=== PATIENT | male | born 1950 | race Two or more races ===

== ENCOUNTER 2020-09-14 07:34 | Outpatient (REF) | payer MEDICARE, SELFPAY ==
[2020-09-14 08:43] LABS: Alanine Aminotransferase 17 U/L (0-40); Albumin Level 4.3 g/dL (3.5-5.0); Alkaline Phosphatase 76 U/L (39-117); Anion Gap 12 (12-20); Aspartate Amino Transferase 24 U/L (5-37); Bilirubin Total 0.8 mg/dL (0.0-1.0); Blood Urea Nitrogen 13 mg/dL (9-16); Carbon Dioxide 27 mmol/L (22-29); Chloride 106 mmol/L (96-108); Cholesterol 213 mg/dL; Estimated Glomerular Filt Rate > 60; Glucose Fasting 97 mg/dL (60-99); HDL Cholesterol 50 mg/dL; LDL Cholesterol Calculated 136 mg/dl; Sodium 141 mmol/L (135-145); Total Protein 6.9 g/dL (6.5-8.0); Triglycerides 137 mg/dL
== END 2020-09-14 07:35 | disposition home or self-care (01) ==
LOC: HO.LAB 07:34
PROVIDERS: PCP Internal Medicine; Visit Provider Internal Medicine
DX: I10 Essential (primary) hypertension (principal); E78.00 Pure hypercholesterolemia, unspecified
CPT/HCPCS: 80053; 80061

== ENCOUNTER 2021-01-23 09:28 | Outpatient (REF) | payer MEDICARE, SELFPAY ==
--- NOTE | ~2021-01-23 | XR_ITS ---
EXAMINATION: XR HIP, RIGHT CLINICAL INFORMATION: Pain COMPARISON: None TECHNIQUE: Two views of the right hip. FINDINGS: Bone alignment is normal. No fracture or dislocation is seen. There is arthritis at the right hip joint with joint space narrowing and osteophyte formation. There are degenerative changes of the visualized lower lumbar spine. Soft tissues are unremarkable. XR/XR hip RT min 2V IMPRESSION: Right hip arthritis.
--- NOTE | ~2021-01-23 | XR_ITS ---
EXAMINATION: XR LUMBOSACRAL SPINE CLINICAL INFORMATION: Low back pain COMPARISON: None TECHNIQUE: Three views of the lumbosacral spine. FINDINGS: Bone alignment is normal. No fracture or dislocation is seen. There are disc cages at L4-L5 and L5-S1. There is severe multilevel degenerative disc disease and spondylosis seen at all levels. Paraspinal soft tissues are unremarkable. XR/XR lumbar spine 2-3V IMPRESSION: Postsurgical changes at L4-L5 and L5-S1. Severe multilevel degenerative disc disease and spondylosis.
== END 2021-01-23 09:29 | disposition home or self-care (01) ==
LOC: HO.XRAY 09:28
PROVIDERS: PCP Internal Medicine; Visit Provider Internal Medicine
DX: M25.551 Pain in right hip (principal); M54.5 Low back pain
CPT/HCPCS: 72100; 73502

== ENCOUNTER → 2021-04-04 15:01 | Outpatient (BNVA) | payer MEDICARE, SELFPAY | PROVIDERS: PCP Internal Medicine; Visit Provider Nurse Practitioner Family | DX: M47.816 Spondylosis without myelopathy or radiculopathy, lumbar region (principal); M53.3 Sacrococcygeal disorders, not elsewhere classified | CPT/HCPCS: 99202 ==

== ENCOUNTER 2021-04-26 05:58 | Outpatient (REF) | payer MEDICARE, SELFPAY ==
--- NOTE | ~2021-04-26 | FL_ITS ---
EXAMINATION: XR FLUOROSCOPY WITH IMAGES CLINICAL INFORMATION: Sacrococcygeal disorders. COMPARISON: None. TECHNIQUE: Fluoroscopy performed by Amelie Kessler NP. Fluoroscopy time: 0.3 minutes DAP: 1.47 Gycm2 Images: 4 FINDINGS: There are 4 images obtained revealing needle position along the inferior SI joint and contrast within the soft tissues. There are 2 cages at L4-L5 and L5-S1 disc levels for fusion. FL/FL guidance in treatment room IMPRESSION: Fluoroscopy provided to the referring physician for pain management of SI joints.
== END 2021-04-26 05:59 | disposition home or self-care (01) ==
LOC: HO.RADIR 05:58
PROVIDERS: Visit Provider Internal Medicine
DX: M53.3 Sacrococcygeal disorders, not elsewhere classified (principal)
CPT/HCPCS: 27096; J2920; J3300; Q9967

== ENCOUNTER 2021-05-11 07:26 | Outpatient (REF) | payer MEDICARE, SELFPAY ==
[2021-05-11 09:01] LABS: Alanine Aminotransferase 30 U/L (0-40); Albumin Level 4.3 g/dL (3.5-5.0); Alkaline Phosphatase 79 U/L (39-117); Anion Gap 13 (12-20); Aspartate Amino Transferase 29 U/L (5-37); Bilirubin Total 0.6 mg/dL (0.0-1.0); Blood Urea Nitrogen 17 mg/dL (9-16); Calcium 9.8 mg/dL (8.4-10.2); Carbon Dioxide 27 mmol/L (22-29); Chloride 107 mmol/L (96-108); Cholesterol 227 mg/dL; Estimated Glomerular Filt Rate > 60; Glucose Fasting 101 mg/dL (60-99); HDL Cholesterol 58 mg/dL; LDL Cholesterol Calculated 147 mg/dl; Potassium 4.6 mmol/L (3.3-5.1); Sodium 142 mmol/L (135-145); Total Protein 6.9 g/dL (6.5-8.0); Triglycerides 111 mg/dL
== END 2021-05-11 07:27 | disposition home or self-care (01) ==
LOC: HO.LAB 07:26
PROVIDERS: PCP Internal Medicine; Visit Provider Internal Medicine
DX: E78.5 Hyperlipidemia, unspecified (principal); E78.00 Pure hypercholesterolemia, unspecified
CPT/HCPCS: 36415; 80053; 80061

== ENCOUNTER → 2021-06-02 09:49 | Outpatient (BNVA) | payer MEDICARE, SELFPAY | PROVIDERS: PCP Internal Medicine; Visit Provider Internal Medicine | DX: M53.3 Sacrococcygeal disorders, not elsewhere classified (principal); M47.816 Spondylosis without myelopathy or radiculopathy, lumbar region; M25.551 Pain in right hip; G58.8 Other specified mononeuropathies | CPT/HCPCS: 99212 ==

== ENCOUNTER 2021-07-19 06:14 | Outpatient (REF) | payer MEDICARE, SELFPAY ==
--- NOTE | ~2021-07-19 | FL_ITS ---
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 TECHNIQUE: Fluoroscopy performed by Dr. Avalos. Fluoroscopy time: 0.6 minutes DAP: 2.18 Gycm2 Images: 4 FINDINGS: There are 3 needles along the upper right iliac wing and 2 needles overlying the periphery right lateral sacrum wing. Some trace contrast is noted in the soft tissues. No visible vascular communication. Again, there are degenerative changes lumbosacral spine with intradiscal cages L4-L5 and L5-S1. FL/FL guidance in treatment room IMPRESSION: Fluoroscopy for pain management procedure.
== END 2021-07-19 06:15 | disposition home or self-care (01) ==
LOC: HO.RADIR 06:14
PROVIDERS: Visit Provider Internal Medicine
DX: G58.8 Other specified mononeuropathies (principal); M54.50 Low back pain, unspecified; M25.551 Pain in right hip
CPT/HCPCS: 64450; Q9967

== ENCOUNTER → 2021-08-18 08:01 | Outpatient (BNVA) | payer MEDICARE, SELFPAY | PROVIDERS: PCP Internal Medicine; Visit Provider Nurse Practitioner Family | DX: G58.8 Other specified mononeuropathies (principal); M47.816 Spondylosis without myelopathy or radiculopathy, lumbar region; M53.3 Sacrococcygeal disorders, not elsewhere classified; M25.551 Pain in right hip | CPT/HCPCS: 99212 ==

== ENCOUNTER 2022-01-10 07:22 | Outpatient (REF) | payer MEDICARE, SELFPAY ==
--- NOTE | 2022-01-10 07:45 | ECG_ITS ---
Test Reason : I10 HTN Blood Pressure : / mmHG Vent. Rate : 057 BPM Atrial Rate : 057 BPM P-R Int : 170 ms QRS Dur : 104 ms QT Int : 422 ms P-R-T Axes : 063 060 042 degrees QTc Int : 410 ms Sinus bradycardia Otherwise normal ECG When compared with ECG of 09-SEP-2013 08:04, No significant change was found Referred By: Sangeetha Limon Electronically Signed By:MARTHA BE
[2022-01-10 08:58] LABS: Alanine Aminotransferase 22 U/L (0-40); Albumin Level 4.5 g/dL (3.5-5.0); Alkaline Phosphatase 75 U/L (39-117); Anion Gap 9 (12-20); Aspartate Amino Transferase 23 U/L (5-37); Bilirubin Total 0.8 mg/dL (0.0-1.0); Blood Urea Nitrogen 12 mg/dL (9-16); Calcium 10.1 mg/dL (8.4-10.2); Carbon Dioxide 31 mmol/L (22-29); Chloride 106 mmol/L (96-108); Cholesterol 234 mg/dL; Estimated Glomerular Filt Rate > 60; Glucose Fasting 114 mg/dL (60-99); HDL Cholesterol 65 mg/dL; LDL Cholesterol Calculated 136 mg/dl; Potassium 4.7 mmol/L (3.3-5.1); Sodium 141 mmol/L (135-145); Total Protein 7.3 g/dL (6.5-8.0); Triglycerides 167 mg/dL
[2022-01-20 12:41] LABS: Vitamin D 25-OH, D2 <4 ng/mL; Vitamin D 25-OH, D3 72 ng/mL; Vitamin D 25-OH, Total 72 ng/mL (30-100)
== END 2022-01-10 07:23 | disposition home or self-care (01) ==
LOC: HO.LAB 07:22
PROVIDERS: PCP Internal Medicine; Visit Provider Internal Medicine
DX: E78.5 Hyperlipidemia, unspecified (principal); I10 Essential (primary) hypertension; E55.9 Vitamin D deficiency, unspecified
CPT/HCPCS: 36415; 80053; 80061; 82306; 93005

== ENCOUNTER 2022-02-28 14:10 | Outpatient (REF) | payer MEDICARE, SELFPAY ==
--- NOTE | ~2022-02-28 | US_ITS ---
EXAMINATION: US LOWER EXTREMITY DUPLEX, BILATERAL CLINICAL INFORMATION: Peripheral vascular disease. History of hypertension. TECHNIQUE: Real-time ultrasound and Doppler techniques (integrating B-mode 2-D vascular images, Doppler spectral analysis and color flow Doppler imaging) were utilized to interrogate the lower extremities. COMPARISON: None FINDINGS: RIGHT LEG: Common femoral artery: 138 cm/s, triphasic Profunda femoris artery: 115 cm/s, triphasic Superficial femoral artery (proximal): 123 cm/s, triphasic Superficial femoral artery (mid): 140 cm/s, triphasic Superficial femoral artery (distal): 89.7 cm/s, triphasic Popliteal artery: 89.1 cm/s, triphasic Posterior tibial artery: 175 cm/s, triphasic LEFT LEG: Common femoral artery: 118 cm/s, triphasic Profunda femoris artery: 125 cm/s, triphasic Superficial femoral artery (proximal): 137 cm/s, triphasic Superficial femoral artery (mid): 122 cm/s, triphasic Superficial femoral artery (distal): 114 cm/s, triphasic Popliteal artery: 85.6 cm/s, triphasic Posterior tibial artery: 145 cm/s, triphasic US/US arterial duplex LE BI IMPRESSION: Right: Multiphasic waveforms demonstrated throughout the right lower extremity. There is focally increased velocity involving the right posterior tibial artery suggesting a proximal stenosis. The WIPING RAG WASHER waveform is triphasic. Left: Multiphasic waveforms demonstrated throughout the left lower extremity. No hemodynamically significant stenoses identified.
== END 2022-02-28 14:11 | disposition home or self-care (01) ==
LOC: HO.US 14:10
PROVIDERS: PCP Internal Medicine; Visit Provider Internal Medicine
DX: I73.9 Peripheral vascular disease, unspecified (principal)
CPT/HCPCS: 93925

== ENCOUNTER → 2022-04-26 10:05 | Outpatient (BNVA) | payer MEDICARE, SELFPAY | PROVIDERS: PCP Internal Medicine; Visit Provider Surgery Vascular Surgery | DX: I83.11 Varicose veins of right lower extremity with inflammation (principal) | CPT/HCPCS: 99212 ==

== ENCOUNTER 2022-06-27 12:31 | Outpatient (REF) | payer MEDICARE, SELFPAY ==
--- NOTE | ~2022-06-27 | US_ITS ---
EXAMINATION: US LOWER EXTREMITY VENOUS (REFLUX EXAM), BILATERAL CLINICAL INDICATION: Varicose veins, chronic venous insufficiency COMPARISON: 09/25/2017 TECHNIQUE: Color flow triplex imaging and compression Doppler was performed to evaluate both the deep and the superficial systems bilaterally. To evaluate the superficial system, the examination was performed in the upright position. Color-flow Doppler ultrasound and compression ultrasound were utilized. In addition, maneuvers were utilized to demonstrate reflux. FINDINGS: 1. DEEP VENOUS ULTRASOUND OF THE RIGHT LOWER EXTREMITY: Common Femoral Vein: Compressible, normal respiratory variation and augmented flow. Femoral Vein: Compressible, normal color flow and augmentation. Popliteal Vein: Compressible, normal augmentation. Deep Reflux: There is no evidence of reflux in the deep system in either the common femoral vein or the popliteal vein. Medial knee joint effusion 2. SUPERFICIAL ULTRASOUND WITH DOPPLER OF RIGHT LOWER EXTREMITY: GREAT SAPHENOUS VEIN: Saphenofemoral Junction: 0.4 cm; Reflux: 0 ms Proximal Thigh: 0.3 cm; Reflux: 0 ms Mid Thigh: 0.3 cm; Reflux: 0 ms Above Knee: 0.3 cm; Reflux: 0 ms At Knee: 0.2 cm; Reflux: 0 ms Below Knee: 0.2 cm; Reflux: 0 ms Mid Calf: 0.1 cm; Reflux: 0 ms Ankle: 0.1 cm; Reflux: 0 ms DUPLICATED MEDIAL GREAT SAPHENOUS VEIN: Diameter: None Imaged Reflux: NA DUPLICATED LATERAL GREAT SAPHENOUS VEIN: Diameter: None Imaged Reflux: NA SMALL SAPHENOUS VEIN: Proximal: 0.1 cm; Reflux: 0 ms Distal: 0.1 cm; Reflux: 0 ms VEIN OF GIACOMINI: None Imaged. PERFORATORS: Location: None Imaged Size: NA Reflux: NA VARICOSITIES: Location: None Imaged Size: NA Reflux: NA 3. DEEP VENOUS ULTRASOUND OF THE LEFT LOWER EXTREMITY: Common Femoral Vein: Compressible, normal respiratory variation and augmented flow. Femoral Vein: Compressible, normal color flow and augmentation. Popliteal Vein: Compressible, normal augmentation. Deep Reflux: There is no evidence of reflux in the deep system in either the common femoral vein or the popliteal vein. There is no evidence of a Andre's cyst. 4. SUPERFICIAL ULTRASOUND WITH DOPPLER OF LEFT LOWER EXTREMITY: GREAT SAPHENOUS VEIN: Saphenofemoral Junction: 0.5 cm; Reflux: 0 ms Proximal Thigh: 0.2 cm; Reflux: 0 ms Mid Thigh: 0.2 cm; Reflux: 0 ms Above Knee: 0.4 cm; Reflux: 0 ms At Knee: 0.2 cm; Reflux: 0 ms Below Knee: 0.3 cm; Reflux: 0 ms Mid Calf: 0.1 cm; Reflux: 0 ms Ankle: 0.2 cm; Reflux: 0 ms DUPLICATED MEDIAL GREAT SAPHENOUS VEIN: Diameter: None Imaged Reflux: NA DUPLICATED LATERAL GREAT SAPHENOUS VEIN: Diameter: 0.2 cm Reflux: None SMALL SAPHENOUS VEIN: Proximal: 0.1 cm; Reflux: 0 ms Distal: 0.1 cm; Reflux: 0 ms VEIN OF GIACOMINI: None Imaged. PERFORATORS: Location: None Imaged Size: NA Reflux: NA VARICOSITIES: Location: None Imaged Size: NA Reflux: NA US/US venous duplex LE BI IMPRESSION: Right: Normal venous ultrasound. No evidence of venous insufficiency. Note made of a medial knee joint effusion Left: Normal venous ultrasound. No evidence of venous insufficiency.
== END 2022-06-27 12:32 | disposition home or self-care (01) ==
LOC: HO.US 12:31
PROVIDERS: PCP Internal Medicine; Visit Provider Surgery Vascular Surgery
DX: I83.11 Varicose veins of right lower extremity with inflammation (principal)
CPT/HCPCS: 93970

== ENCOUNTER → 2022-07-03 08:48 | Outpatient (BNVA) | payer MEDICARE, SELFPAY | PROVIDERS: PCP Internal Medicine; Visit Provider Surgery Vascular Surgery | DX: I83.11 Varicose veins of right lower extremity with inflammation (principal); M79.605 Pain in left leg; M79.604 Pain in right leg; G25.81 Restless legs syndrome | CPT/HCPCS: 99212 ==

== ENCOUNTER 2022-08-08 07:56 | Outpatient (REF) | payer MEDICARE, SELFPAY ==
[2022-08-08 09:33] LABS: Alanine Aminotransferase 20 U/L (0-40); Albumin Level 4.5 g/dL (3.5-5.0); Alkaline Phosphatase 76 U/L (39-117); Anion Gap 14 (12-20); Aspartate Amino Transferase 21 U/L (5-37); Bilirubin Total 0.4 mg/dL (0.0-1.0); Blood Urea Nitrogen 16 mg/dL (9-16); Calcium 9.7 mg/dL (8.4-10.2); Carbon Dioxide 26 mmol/L (22-29); Chloride 107 mmol/L (96-108); Cholesterol 226 mg/dL; Estimated Glomerular Filt Rate > 60; Glucose Random 99 mg/dL (60-115); HDL Cholesterol 56 mg/dL; LDL Cholesterol Calculated 138 mg/dl; Potassium 4.4 mmol/L (3.3-5.1); Sodium 143 mmol/L (135-145); Total Protein 7.2 g/dL (6.5-8.0); Triglycerides 162 mg/dL
[2022-08-08 09:48] LABS: PSA,Total (Free>4and<10) 0.32 ng/mL (0.00-4.00)
== END 2022-08-08 07:57 | disposition home or self-care (01) ==
LOC: HO.LAB 07:56
PROVIDERS: PCP Internal Medicine; Visit Provider Internal Medicine
DX: Z00.00 Encounter for general adult medical examination without abnormal findings (principal); E78.5 Hyperlipidemia, unspecified; Z12.5 Encounter for screening for malignant neoplasm of prostate
CPT/HCPCS: 36415; 80053; 80061; 84153

== ENCOUNTER 2023-04-03 07:12 | Outpatient (REF) | payer MEDICARE, SELFPAY ==
[2023-04-03 07:58] LABS: Alanine Aminotransferase 23 U/L (0-40); Albumin Level 4.5 g/dL (3.5-5.0); Alkaline Phosphatase 72 U/L (39-117); Anion Gap 15 (12-20); Aspartate Amino Transferase 26 U/L (5-37); Blood Urea Nitrogen 17 mg/dL (9-16); Calcium 10.4 mg/dL (8.4-10.2); Carbon Dioxide 27 mmol/L (22-29); Chloride 105 mmol/L (96-108); Cholesterol 227 mg/dL; Estimated Glomerular Filt Rate > 60; Glucose Fasting 109 mg/dL (60-99); HDL Cholesterol 62 mg/dL; LDL Cholesterol Calculated 141 mg/dl; Potassium 4.5 mmol/L (3.3-5.1); Sodium 142 mmol/L (135-145); Total Protein 7.7 g/dL (6.5-8.0); Triglycerides 123 mg/dL
== END 2023-04-03 07:13 | disposition home or self-care (01) ==
LOC: HO.LAB 07:12
PROVIDERS: PCP Internal Medicine; Visit Provider Internal Medicine
DX: I10 Essential (primary) hypertension (principal); E78.5 Hyperlipidemia, unspecified
CPT/HCPCS: 36415; 80053; 80061

== ENCOUNTER 2023-04-10 11:41 | Outpatient (REF) | payer MEDICARE, SELFPAY ==
[2023-04-10 13:40] LABS: Alanine Aminotransferase 23 U/L (0-40); Albumin Level 4.3 g/dL (3.5-5.0); Alkaline Phosphatase 77 U/L (39-117); Anion Gap 8 (12-20); Aspartate Amino Transferase 27 U/L (5-37); Bilirubin Total 0.6 mg/dL (0.0-1.0); Blood Urea Nitrogen 13 mg/dL (9-16); Calcium 9.9 mg/dL (8.4-10.2); Carbon Dioxide 26 mmol/L (22-29); Chloride 107 mmol/L (96-108); Estimated Glomerular Filt Rate > 60; Glucose Fasting 93 mg/dL (60-99); Potassium 4.3 mmol/L (3.3-5.1); Sodium 137 mmol/L (135-145); Total Protein 7.4 g/dL (6.5-8.0)
[2023-04-10 13:55] LABS: Vitamin D 25-OH Total 57.4 ng/mL (>30)
[2023-04-11 15:28] LABS: Calcium (PTHI) 9.6 mg/dL (8.6-10.3); PTHI 37 pg/mL (16-77)
[2023-04-15 03:55] LABS: Calcium, Ionized 5.2 mg/dL (4.7-5.5)
== END 2023-04-10 11:42 | disposition home or self-care (01) ==
LOC: HO.LAB 11:41
PROVIDERS: PCP Internal Medicine; Visit Provider Internal Medicine
DX: I10 Essential (primary) hypertension (principal); E55.9 Vitamin D deficiency, unspecified
CPT/HCPCS: 36415; 80053; 82306; 82330; 83970

== ENCOUNTER 2023-04-11 | Outpatient (REF) | payer MEDICARE, SELFPAY ==
[2023-04-13 18:24] LABS: Calcium, Random Urine 13.4 mg/dL
== END 2023-04-11 00:01 | disposition home or self-care (01) ==
LOC: HO.LNP
PROVIDERS: Visit Provider Internal Medicine
DX: E83.52 Hypercalcemia (principal)
CPT/HCPCS: 82310

== ENCOUNTER 2023-08-14 12:43 | Outpatient (AMB) | payer MEDICARE, SELFPAY ==
[2023-08-14 12:57] VITALS: BP 160/78; PULSE 53; O2SAT 98; BMI 26.4
--- NOTE | 2023-08-14 12:57 | A.OFFPC_ITS ---
Vital Signs 08/14/23 12:57 Height 5 ft 10 in Weight 184 lb BMI 26.4 BP 160/78 H Blood Pressure Location Lt brachial Position Sitting Pulse 53 Pulse Source Pulse Oximeter Pulse Oximetry (%) 98 Oxygen Delivery Method Room Air Intake Visit Reasons: bp Intake Note: Patient here for a follow up BP Cdl Bulk Driver Required: No Accompanied by: Self / Same As Patient Allergies amlodipine Allergy (Intermediate, Verified 08/14/23 13:12) leg edema atorvastatin Allergy (Intermediate, Verified 08/14/23 13:12) myalgia rosuvastatin Allergy (Intermediate, Verified 08/14/23 13:12) myalgia Medication List - Last Reconciled 08/14/23 by Sangeetha Limon MD ezetimibe 10 mg PO DAILY 90 days lisinopril 10 mg PO DAILY 90 days Tobacco use date assessed: 01/01/23 Fall risk assessment: No Falls in past year Last assessed Fall Risk: 08/14/23 Dental Screening Dental Screen Date: 08/14/23 Did you have a dental visit in the last 12 months?: Yes Did you have a dental problem in the last 6 months where you did not have access to dental care?: No Was dental information given to patient?: Patient has dentist HPI HPI Comments History of Present Illness Details This is a 73-year-old male with hypertension and pure hypercholesterolemia that comes for follow-up on his conditions. Blood pressure elevated and he did took his medications today. I will increase lisinopril from 10 mg to 20 mg. Blood pressure goal is equal or less than 130/80. On Zetia for cholesterol. No chest pain or shortness of breath. [facility] Medical History Primary insomnia Left hip pain PAD (peripheral artery disease) Low back pain Right hip pain Pure hypercholesterolemia Essential hypertension Surgical History History of surgery History of appendectomy History of prostate surgery History of nasal surgery Family History Father Prostate cancer Mother Alzheimers disease Brother Hyperlipidemia Social History Housing: Apartment Alcohol intake: current Alcohol intake frequency: a few times a month Alcohol type: beer and hard liquor Patient Tobacco Use Status: Never used Tobacco e-Cigarette/Vaping Use: Never Used Second Hand Smoke Exposure: No service: No Current occupational status: disabled Cognitive needs: No Hearing needs: No Vision needs: No Questionnaire Thrive Questionnaire Date Thrive assessed: 01/01/23 DANISHA-7 AMB Questionnaire DANISHA-7 Date DANISHA - 7 assessed: 01/01/23 Source: Developed by Drs. Christian Hopson, Era Mccormack, Frank Hood and colleagues, with an educational linda from [employer]. Review of Systems Const All systems reviewed & are unremarkable except as noted in HPI and below Eyes Reports no additional complaints, Denies change in vision and Denies other visual disturbances Card Denies chest pain at rest, Denies chest pain with activity, Denies edema, Denies irregular heart rhythm, Denies claudication, Denies dyspnea, Denies dyspnea on exertion, Denies orthopnea, Denies paroxysmal nocturnal dyspnea and Denies slow heart rate Resp Denies cough, Denies dyspnea and Denies dyspnea on exertion GI Denies abdominal pain, Denies change in bowel habits, Denies excessive flatus, Denies nausea and Denies vomiting Denies urinary hesitancy, Denies urinary incontinence and Denies urinary urgency Musc Denies abnormal gait, Denies atrophy, Denies deformity and Denies limited range of motion Skin/Breast Denies bleeding lesions, Denies changing lesions and Denies rash Neuro Denies abnormal gait and Denies lack of coordination Physical exam (Primary Care) Vital Signs: Last Vital Signs Pulse 53 08/14/23 12:57 BP 160/78 H 08/14/23 12:57 Pulse Ox 98 08/14/23 12:57 Oxygen Delivery Method Room Air 08/14/23 12:57 BMI result Body Mass Index 26.4 Tobacco/Smoking Status: Tobacco use Status Tobacco use date assessed 01/01/23 08/14/23 12:59 Patient Tobacco Use Status Never used Tobacco 08/14/23 12:59 e-Cigarette/Vaping Use Never Used 08/14/23 12:59 Thrive Assessment: Date of Thrive Assessment Date Thrive assessed 01/01/23 08/14/23 12:59 Eyes General: appearance normal, both eyes and all related structures Eyelids: Yes eyelids normal Conjunctivae: conjunctivae normal Neck Neck: Yes normal visual inspection and Yes supple Resp Effort & Inspection: normal respiratory effort Auscultation: clear to auscultation bilaterally Cardio Jugular venous distension: no JVD Rate: regular rate Rhythm: regular rhythm Heart sounds: S1 normal heart sound present and S2 normal heart sound present Extrem General: Yes full ROM Office Procedures Flu Questionnaire Does the patient have a severe egg allergy?: No Does the patient have severe life threatening allergies?: No Does the patient have a fever or illness today?: No Has the patient ever had Guillain-Jasper Syndrome?: No Has the patient ever had any past reaction to a flu shot?: No Immunizations flu vacc [id number] 6mos up(PF) 60 mcg(15 mcgx4)/0.5 mL IM syringe Performing Provider: Sangeetha Limon MD Performing Location: [facility] Administered by: MOHIT Uribe on 08/14/23 13:22 Dose Route Admin Location Dispensed Lot Number Expiration Date [employer] 0.5 mL IM Left Deltoid 0.5 mL [id number] 04/12/24 76080-579-71 Projjix VIS Given Date VIS Provided VIS Publication Date 08/14/23 Single Vaccine 21 Eligibility Eligibility Date Funding Source Not [facility] Eligible 08/14/23 Private Assessment and Plan Assessment & Plan (1) Essential hypertension: Code(s): I10 - Essential (primary) hypertension Plan: Increase lisinopril from 10 mg to 20 mg. Blood pressure goal is equal or less than 130/80. Recheck blood pressure with nurse navigator in 3 weeks. (2) Pure hypercholesterolemia: Code(s): E78.00 - Pure hypercholesterolemia, unspecified Plan: Continue Zetia. Orders: Orders Influenza [id number] Immunization Today Z23 - Encounter for immunization Medications: New lisinopril 20 mg PO DAILY 90 tabs 1RF 90 days Discontinued lisinopril Discontinued Reason: Patient Completed Course 10 mg PO DAILY 90 days 90 tabs 0RF Coding Level of Care Code Est Pt Level 3 (47610) Diagnoses Essential hypertension I10 Pure hypercholesterolemia E78.00 Time Spent (min) 17
== END 2023-08-14 13:24 | disposition home or self-care (01) ==
PROVIDERS: PCP Internal Medicine; Visit Provider Internal Medicine
DX: I10 Essential (primary) hypertension (principal); E78.00 Pure hypercholesterolemia, unspecified; Z23 Encounter for immunization; I73.9 Peripheral vascular disease, unspecified
CPT/HCPCS: 90471; 90686; 99213

== ENCOUNTER 2023-12-17 10:16 | Outpatient (AMB) | payer MEDICARE, SELFPAY ==
[2023-12-17 10:19] VITALS: BP 152/84; BMI 25.7
--- NOTE | 2023-12-17 10:19 | MHC.PC.OV ---
Vital Signs 12/17/23 10:19 12/17/23 12:05 Height 5 ft 10 in Weight 179 lb BMI 25.7 BP 152/84 H 150/80 H Blood Pressure Location Lt brachial Lt brachial Position Sitting Sitting Intake Visit Reasons: bp Intake Note: Patient here for a follow up BP Kier Boiler Required: No Accompanied by: Self / Same As Patient Allergies amlodipine Allergy (Intermediate, Verified 12/17/23 10:41) leg edema atorvastatin Allergy (Intermediate, Verified 12/17/23 10:41) myalgia rosuvastatin Allergy (Intermediate, Verified 12/17/23 10:41) myalgia Medication List - Last Reconciled 12/17/23 by Sangeetha Limon MD ezetimibe 10 mg PO DAILY 90 days lisinopril 20 mg PO DAILY 90 days Tobacco use date assessed: 12/17/23 Fall risk assessment: No Falls in past year Last assessed Fall Risk: 12/17/23 Dental Screening Dental Screen Date: 12/17/23 Did you have a dental visit in the last 12 months?: Yes Did you have a dental problem in the last 6 months where you did not have access to dental care?: No Was dental information given to patient?: Patient has dentist HPI HPI Comments History of Present Illness Details This is a 73-year-old male with hypertension and pure hypercholesterolemia that comes today for follow-up on his conditions. Compliant with medications. Blood pressure is elevated today and will be recheck in 3 weeks by nurse navigator. On statins for cholesterol. No chest pain or shortness a breath. [facility] Medical History Primary insomnia Left hip pain PAD (peripheral artery disease) Low back pain Right hip pain Pure hypercholesterolemia Essential hypertension Surgical History History of surgery History of appendectomy History of prostate surgery History of nasal surgery Family History Father Prostate cancer Mother Alzheimers disease Brother Hyperlipidemia Social History Housing: Apartment Alcohol intake: current Alcohol intake frequency: a few times a month Alcohol type: beer and hard liquor Patient Tobacco Use Status: Never used Tobacco e-Cigarette/Vaping Use: Never Used Second Hand Smoke Exposure: No service: No Current occupational status: disabled Cognitive needs: No Hearing needs: No Vision needs: No Questionnaire PHQ-9 Over the last 2 weeks, how often have you been bothered by any of the following problems? 1. Little interest or pleasure in doing things: not at all 2. Feeling down, depressed, or hopeless: not at all 3. Trouble falling or staying asleep, or sleeping too much: not at all 4. Feeling tired or having little energy: not at all 5. Poor appetite or overeating: not at all 6. Feeling bad about yourself - or that you are a failure or have let yourself or your family down: not at all 7. Trouble concentrating on things, such as reading the newspaper or watching television: not at all 8. Moving or speaking so slowly that other people could have noticed. Or the opposite - being so fidgety or restless that you have been moving around a lot more than usual: not at all 9. Thoughts that you would be better off or of hurting yourself in some way: not at all Total score: 0 Depression Screening Interpretation: Negative Depression Screening Done: Yes 04758 - PHQ-9 Billing: Yes Source: Developed by Drs. Christian Hopson, Era Mccormack, Frank Hood and colleagues, with an educational linda from [employer]. Thrive Questionnaire Date Thrive assessed: 12/17/23 I am a: Patient What is your living situation today?: I have a steady place to live Within the past 12 months, did the food you bought not last and you didn't have the money to get more?: Never true Within the past 12 months, did you worry whether your food would run out before you got money to buy more?: Never true Do you have trouble paying for medicines?: No Do you have trouble getting transportation to medical appointments?: No Do you have trouble paying your heating and electricity bill?: No Do you have trouble taking care of your child, family member or friend?: No Do you have trouble with day-to-day activities such as bathing, preparing meals, shopping, managing finances, etc.?: No Are you currently unemployed and looking for a job?: No Are you interested in more education?: No Please select the resources that you would like help with: None Currently or been in a relationship where the following occur: no concerns reported THRIVE Score: 0 AUDIT C Alcohol Use Questionnaire (AUDIT-C) 1. How often do you have a drink containing alcohol?: Monthly or less 2. How many drinks containing alcohol do you have on a typical day when you are drinking?: 1 or 2 3. How often do you have six or more drinks on one occasion?: Never Total Score: 1 Score Reviewed/Action Taken: No DANISHA-7 AMB Questionnaire DANISHA-7 Date DANISHA - 7 assessed: 12/17/23 Feeling nervous, anxious, or on edge: 0 = Not at all Not being able to stop or control worryin = Not at all Worrying too much about different things: 0 = Not at all Trouble relaxin = Not at all Being so restless that it is hard to sit still: 0 = Not at all Becoming easily annoyed or irritable: 0 = Not at all Feeling afraid as if something awful might happen: 0 = Not at all Total DANISHA-7 score (0-4 normal; 5-9 mild; 10-14 moderate; 15-21 severe): 0 Source: Developed by Drs. Christian Hopson, Era Mccormack, Frank Hood and colleagues, with an educational linda from [employer]. DANISHA-7 Assessment Billing DANISHA-7 Assessment Tool: DANISHA-7 Assessment 13886 Review of Systems Const All systems reviewed & are unremarkable except as noted in HPI and below Eyes Reports no additional complaints, Denies change in vision and Denies other visual disturbances Card Denies chest pain at rest, Denies chest pain with activity, Denies edema, Denies irregular heart rhythm, Denies claudication, Denies dyspnea, Denies dyspnea on exertion, Denies orthopnea, Denies paroxysmal nocturnal dyspnea and Denies slow heart rate Resp Denies cough, Denies dyspnea and Denies dyspnea on exertion GI Denies abdominal pain, Denies change in bowel habits, Denies excessive flatus, Denies nausea and Denies vomiting Denies urinary hesitancy, Denies urinary incontinence and Denies urinary urgency Musc Denies abnormal gait, Denies atrophy, Denies deformity and Denies limited range of motion Skin/Breast Denies bleeding lesions, Denies changing lesions and Denies rash Neuro Denies abnormal gait and Denies lack of coordination Physical exam (Primary Care) Vital Signs: Last Vital Signs BP 152/84 H 12/17/23 10:19 BMI result Body Mass Index 25.7 Tobacco/Smoking Status: Tobacco use Status Tobacco use date assessed 12/17/23 12/17/23 10:25 Patient Tobacco Use Status Never used Tobacco 12/17/23 10:25 e-Cigarette/Vaping Use Never Used 12/17/23 10:25 PHQ-9: PHQ-9 Score PHQ-9: Total score 0 12/17/23 10:46 Depression Screening Interpretation: Negative Thrive Assessment: Date of Thrive Assessment Date Thrive assessed 12/17/23 12/17/23 10:25 Currently or been in a relationship where the following occur: no concerns reported Eyes General: appearance normal, both eyes and all related structures Eyelids: Yes eyelids normal Conjunctivae: conjunctivae normal Neck Neck: Yes normal visual inspection and Yes supple Resp Effort & Inspection: normal respiratory effort Auscultation: clear to auscultation bilaterally Cardio Jugular venous distension: no JVD Rate: regular rate Rhythm: regular rhythm Heart sounds: S1 normal heart sound present and S2 normal heart sound present Extrem General: Yes full ROM Assessment and Plan Assessment & Plan (1) Essential hypertension: Code(s): I10 - Essential (primary) hypertension Plan: Continue lisinopril. Blood pressure goal is equal or less than 130/80. Recheck blood pressure with nurse navigator in 3 weeks. (2) Pure hypercholesterolemia: Code(s): E78.00 - Pure hypercholesterolemia, unspecified Plan: Continue Zetia. Repeat lipid panel. Orders: Orders Lipid Panel Today E78.5 - Hyperlipidemia, unspecified Comprehensive [place]. Panel Fast Today E78.00 - Pure hypercholesterolemia, unspecified Referrals Gastroenterology Referral Z12.11 - Encounter for screening for malignant neoplasm of colon Coding Level of Care Code Est Pt Level 3 (70908) Diagnoses Essential hypertension I10 Pure hypercholesterolemia E78.00 Additional Codes DANISHA-7 Assessment Billing - DANISHA-7 Assessment Tool: DANISHA-7 Assessment 20086 ([id number]) Time Spent (min) 19
[2023-12-17 12:05] VITALS: BP 150/80
== END 2023-12-17 10:48 | disposition home or self-care (01) ==
PROVIDERS: PCP Internal Medicine; Visit Provider Internal Medicine
DX: I10 Essential (primary) hypertension (principal); E78.00 Pure hypercholesterolemia, unspecified
CPT/HCPCS: 99213

== ENCOUNTER → 2024-03-04 15:09 | Outpatient (BNVA) | payer MEDICARE, SELFPAY | PROVIDERS: PCP Internal Medicine; Visit Provider Nurse Practitioner Family ==

== ENCOUNTER 2024-04-14 08:36 | Outpatient (AMB) | payer MEDICARE, SELFPAY ==
[2024-04-14 08:39] VITALS: BP 124/56; PULSE 62; O2SAT 99; BMI 25.5
--- NOTE | 2024-04-14 08:39 | MHC.PC.OV ---
Vital Signs 04/14/24 08:39 Height 5 ft 10 in Weight 178 lb 0.4 oz BMI 25.5 BP 124/56 L Blood Pressure Location Lt brachial Position Sitting Pulse 62 Pulse Source Pulse Oximeter Pulse Oximetry (%) 99 Oxygen Delivery Method Room Air Intake Visit Reasons: pe Intake Note: Patient is here today for a physical. 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 Accompanied by: Self / Same As Patient Allergies amlodipine Allergy (Intermediate, Verified 04/14/24 09:02) leg edema atorvastatin Allergy (Intermediate, Verified 04/14/24 09:02) myalgia rosuvastatin Allergy (Intermediate, Verified 04/14/24 09:02) myalgia Medication List - Last Reconciled 04/14/24 by Sangeetha Limon MD bisacodyl (Dulcolax (bisacodyl)) 20 mg (4 x 5 mg) PO ONCE 1 day ezetimibe 10 mg PO DAILY 90 days lisinopril 20 mg PO DAILY 90 days polyethylene glycol 3350 (Miralax) 238 grams PO ONCE Tobacco use date assessed: 12/17/23 Fall risk assessment: No Falls in past year Last assessed Fall Risk: 04/14/24 Dental Screening Dental Screen Date: 12/17/23 Did you have a dental visit in the last 12 months?: Yes Did you have a dental problem in the last 6 months where you did not have access to dental care?: No Was dental information given to patient?: Patient has dentist HPI HPI Comments History of Present Illness Details This is a 74-year-old male that comes for his physical exam. Last colonoscopy was 2013 and was normal. Has a colonoscopy scheduled for July. No chest pain or shortness on breath. No acute complaints. FORMERLY [facility], LATER [facility] Medical History (Updated 04/14/24 @ 09:13 by Sangeetha Limon MD) Primary insomnia Left hip pain PAD (peripheral artery disease) Low back pain Right hip pain Pure hypercholesterolemia Essential hypertension Surgical History Hx of tooth extraction History of surgery History of appendectomy History of prostate surgery History of nasal surgery Family History Father Prostate cancer Mother Alzheimers disease Brother Hyperlipidemia Social History Housing: Apartment Alcohol intake: current Alcohol intake frequency: a few times a month Alcohol type: beer and hard liquor Patient Tobacco Use Status: Never used Tobacco e-Cigarette/Vaping Use: Never Used Second Hand Smoke Exposure: No service: No Current occupational status: disabled Cognitive needs: No Hearing needs: No Vision needs: No Questionnaire PHQ-9 Over the last 2 weeks, how often have you been bothered by any of the following problems? 1. Little interest or pleasure in doing things: not at all 2. Feeling down, depressed, or hopeless: not at all 3. Trouble falling or staying asleep, or sleeping too much: not at all 4. Feeling tired or having little energy: not at all 5. Poor appetite or overeating: not at all 6. Feeling bad about yourself - or that you are a failure or have let yourself or your family down: not at all 7. Trouble concentrating on things, such as reading the newspaper or watching television: not at all 8. Moving or speaking so slowly that other people could have noticed. Or the opposite - being so fidgety or restless that you have been moving around a lot more than usual: not at all 9. Thoughts that you would be better off or of hurting yourself in some way: not at all Total score: 0 Depression Screening Interpretation: Negative Depression Screening Done: Yes 56682 - PHQ-9 Billing: Yes Source: Developed by Drs. Christian Hopson, Era Mccormack, Frank Hood and colleagues, with an educational linda from [employer] Thrive Questionnaire Date Thrive assessed: 12/17/23 AUDIT C Alcohol Use Questionnaire (AUDIT-C) 1. How often do you have a drink containing alcohol?: Monthly or less 2. How many drinks containing alcohol do you have on a typical day when you are drinking?: 1 or 2 3. How often do you have six or more drinks on one occasion?: Never Total Score: 1 Score Reviewed/Action Taken: No DANISHA-7 AMB Questionnaire DANISHA-7 Date DANISHA - 7 assessed: 04/14/24 Feeling nervous, anxious, or on edge: 0 = Not at all Not being able to stop or control worryin = Not at all Worrying too much about different things: 0 = Not at all Trouble relaxin = Not at all Being so restless that it is hard to sit still: 0 = Not at all Becoming easily annoyed or irritable: 0 = Not at all Feeling afraid as if something awful might happen: 0 = Not at all Total DANISHA-7 score (0-4 normal; 5-9 mild; 10-14 moderate; 15-21 severe): 0 Source: Developed by Drs. Christian Hopson, Era Mccormack, Frank Hood and colleagues, with an educational linda from [employer] DANISHA-7 Assessment Billing DANISHA-7 Assessment Tool: DANISHA-7 Assessment 57447 Review of Systems Const All systems reviewed & are unremarkable except as noted in HPI and below Card Denies chest pain at rest, Denies chest pain with activity, Denies edema, Denies irregular heart rhythm, Denies claudication, Denies dyspnea, Denies dyspnea on exertion, Denies orthopnea, Denies paroxysmal nocturnal dyspnea and Denies slow heart rate Resp Denies cough, Denies dyspnea and Denies dyspnea on exertion GI Denies abdominal pain, Denies change in bowel habits, Denies excessive flatus, Denies nausea and Denies vomiting Denies urinary hesitancy, Denies urinary incontinence and Denies urinary urgency Musc Denies abnormal gait, Denies atrophy, Denies deformity and Denies limited range of motion Skin/Breast Denies bleeding lesions, Denies changing lesions and Denies rash Neuro Denies abnormal gait, Denies behavioral changes, Denies confusion and Denies lack of coordination Psych Denies behavioral changes and Denies confusion Physical exam (Primary Care) Vital Signs: Last Vital Signs Pulse 62 04/14/24 08:39 BP 124/56 L 04/14/24 08:39 Pulse Ox 99 04/14/24 08:39 Oxygen Delivery Method Room Air 04/14/24 08:39 BMI result Body Mass Index 25.5 Tobacco/Smoking Status: Tobacco use Status Tobacco use date assessed 12/17/23 04/14/24 08:40 Patient Tobacco Use Status Never used Tobacco 04/14/24 08:40 e-Cigarette/Vaping Use Never Used 04/14/24 08:40 PHQ-9: PHQ-9 Score PHQ-9: Total score 0 04/14/24 08:45 Depression Screening Interpretation: Negative Thrive Assessment: Date of Thrive Assessment Date Thrive assessed 12/17/23 04/14/24 08:40 Const General: No confusion Orientation/consciousness: patient oriented x3 and No confusion HENMT Head: Yes normal to inspection, Yes normocephalic and Yes atraumatic Ears: external ears normal Eyes General: appearance normal, both eyes and all related structures Eyelids: Yes eyelids normal Conjunctivae: conjunctivae normal Neck Neck: Yes normal visual inspection and Yes supple Resp Effort & Inspection: normal respiratory effort Auscultation: clear to auscultation bilaterally Cardio Jugular venous distension: no JVD Rate: regular rate Rhythm: regular rhythm Heart sounds: S1 normal heart sound present and S2 normal heart sound present GI Inspection: Yes normal to inspection Palpation (GI): Soft to palpation and nontender Auscultation: normal bowel sounds Skin General skin exam: no rashes or lesions noted Neuro General: patient oriented x3, no focal motor deficits and No confusion Extrem General: Yes full ROM Psych Appearance: grossly normal Assessment and Plan Assessment & Plan (1) Physical exam: Code(s): Z00.00 - Encounter for general adult medical examination without abnormal findings Plan: Repeat in a year. Coding Level of Care Code Est Pt Prev Care >65y(54359) Diagnoses Physical exam Z00.00 Additional Codes DANISHA-7 Assessment Billing - DANISHA-7 Assessment Tool: DANISHA-7 Assessment 82625 ([id number]) Time Spent (min) 30
== END 2024-04-14 09:12 | disposition home or self-care (01) ==
PROVIDERS: PCP Internal Medicine; Visit Provider Internal Medicine
DX: Z00.00 Encounter for general adult medical examination without abnormal findings (principal)
CPT/HCPCS: 99397

== ENCOUNTER 2024-05-06 07:37 | Outpatient (REF) | payer MEDICARE, SELFPAY ==
[2024-05-06 09:05] LABS: Alanine Aminotransferase 28 U/L (0-40); Albumin Level 4.2 g/dL (3.5-5.0); Alkaline Phosphatase 92 U/L (39-117); Anion Gap 12 (12-20); Aspartate Amino Transferase 26 U/L (5-37); Bilirubin Total 0.4 mg/dL (0.0-1.0); Blood Urea Nitrogen 13 mg/dL (9-16); Calcium 9.8 mg/dL (8.4-10.2); Carbon Dioxide 26 mmol/L (22-29); Chloride 109 mmol/L (96-108); Cholesterol 196 mg/dL (<200); Estimated Glomerular Filt Rate > 60; Glucose Fasting 101 mg/dL (60-99); HDL Cholesterol 61 mg/dL (>40); LDL Cholesterol Calculated 117 mg/dL (<100); Potassium 4.2 mmol/L (3.3-5.1); Sodium 143 mmol/L (135-145); Total Protein 7.3 g/dL (6.5-8.0); Triglycerides 92 mg/dL (<150); Uric Acid 5.4 mg/dL (3.4-7.0)
[2024-05-06 09:07] LABS: PSA,Total (Free>4and<10) 0.33 ng/mL (0.00-4.00)
== END 2024-05-06 07:38 | disposition home or self-care (01) ==
LOC: HO.LAB 07:37
PROVIDERS: PCP Internal Medicine; Visit Provider Internal Medicine
DX: E78.00 Pure hypercholesterolemia, unspecified (principal); M10.9 Gout, unspecified; E78.5 Hyperlipidemia, unspecified; Z12.5 Encounter for screening for malignant neoplasm of prostate
CPT/HCPCS: 36415; 80053; 80061; 84153; 84550

== ENCOUNTER 2024-07-09 10:45 | Outpatient (AMB) | payer MEDICARE, SELFPAY ==
--- NOTE | 2024-07-09 11:29 | MHC.OFFWIV ---
Intake Vital Signs 07/09/24 11:36 Height 5 ft 10 in Weight 174 lb BMI 25.0 BP 132/80 Blood Pressure Location Lt brachial Position Sitting Pulse 56 Pulse Source Pulse Oximeter Pulse Oximetry (%) 98 Oxygen Delivery Method Room Air Intake Visit Reasons: EP infection in between legs Intake Note: Patient here for rash in groin area, he states it is dark red, itchy and burning that has been present for a couple of days. 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 He states this is underneath his foreskin. Denies any difficulty voiding. Denies STI risk or inciting events to this. Has been applying an otc antibiotic ointment to the area. FORMERLY [facility], [facility] Medical History Primary insomnia Left hip pain PAD (peripheral artery disease) Low back pain Right hip pain Pure hypercholesterolemia Essential hypertension Surgical History Hx of tooth extraction History of surgery History of appendectomy History of prostate surgery History of nasal surgery Family History Father Prostate cancer Mother Alzheimers disease Brother Hyperlipidemia Social History Housing: Apartment Alcohol intake: current Alcohol intake frequency: a few times a month Alcohol type: beer and hard liquor Patient Tobacco Use Status: Never used Tobacco e-Cigarette/Vaping Use: Never Used Second Hand Smoke Exposure: No service: No Current occupational status: disabled Cognitive needs: No Hearing needs: No Vision needs: No Review of Systems Const All systems reviewed & are unremarkable except as noted in HPI and below Physical Exam Vital Signs: Last Vital Signs Pulse 56 07/09/24 11:36 BP 132/80 07/09/24 11:36 Pulse Ox 98 07/09/24 11:36 Oxygen Delivery Method Room Air 07/09/24 11:36 BMI result Body Mass Index 25.0 Const General: cooperative, healthy appearing and no acute distress Resp Effort & Inspection: normal respiratory effort General: Yes no CVA tenderness Penis: uncircumcised (foreskin easily retractable) and erythematous (glans of penis) Meatus: meatus normal Scrotum: scrotum normal Testes: Testes normal Back/Spine/Pelvis Back: no CVA tenderness Extrem General: Yes no clubbing, cyanosis or edema Psych Appearance: grossly normal Mental Status: mental status grossly normal Speech and movement: Normal speech and movement present Assessment & Plan Assessment & Plan (1) Balanitis: Code(s): N48.1 - Balanitis Plan: Started on Miconazole cream for balanitis. Reviewed use of saline rinses and genital hygiene. Advised to return to clinic next week if he does not improve with treatment. Patient verbalizes understanding and agrees to plan. Medications: New miconazole nitrate 2% (Antifungal (miconazole)) Label in Malaysian please. Apply cream to affected area twice a day for 2 weeks. 1 appl topical BID 14 days 28 grams 1RF N48.1 - Balanitis Coding Level of Care Code Est Pt Level 4 (55806) Diagnoses Balanitis N48.1
[2024-07-09 11:36] VITALS: BP 132/80; PULSE 56; O2SAT 98; BMI 25.0
== END 2024-07-09 12:00 | disposition home or self-care (01) ==
PROVIDERS: PCP Internal Medicine; Visit Provider Nurse Practitioner Family
DX: N48.1 Balanitis (principal)

== ENCOUNTER → 2024-07-09 10:45 | Outpatient (BNVA) | payer MEDICARE, SELFPAY | PROVIDERS: PCP Internal Medicine | DX: N48.1 Balanitis (principal) | CPT/HCPCS: 99212 ==

== ENCOUNTER 2024-07-28 09:12 | Day surgery (SDC) | payer MEDICARE, SELFPAY ==
--- NOTE | 2024-07-23 13:46 | P.CONAN_ITS ---
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 (Acute) Sacroiliac joint pain (Acute) Low back pain (Acute) Right hip pain (Acute) Pure hypercholesterolemia (Acute) Essential hypertension (Acute) Past Medical History Medical History Primary insomnia Left hip pain PAD (peripheral artery disease) Low back pain Right hip pain Pure hypercholesterolemia Essential hypertension Family History Family History Father Prostate cancer Mother Alzheimers disease Brother Hyperlipidemia Surgical History Surgical History Hx of tooth extraction History of surgery History of appendectomy History of prostate surgery History of nasal surgery Social History Social History Housing: Apartment Are you a primary furnace caretaker to a significant other at home: No Do you presently have visiting nurse or other home services: No Alcohol intake: current Alcohol intake frequency: a few times a month Alcohol type: beer and hard liquor Patient Tobacco Use Status: Never used Tobacco e-Cigarette/Vaping Use: Never Used Second Hand Smoke Exposure: No service: No Current occupational status: disabled Cognitive needs: No Hearing needs: No Vision needs: No Meds Allergies Allergy/AdvReac Type Severity Reaction Status Date / Time amlodipine Allergy Intermediate leg edema Verified 08/11/24 11:56 atorvastatin Allergy Intermediate myalgia Verified 08/11/24 11:56 rosuvastatin Allergy Intermediate myalgia Verified 08/11/24 11:56 Assessment and Plan Assessment Anesthesia Assessment: Chart Reviewed
[2024-07-28] MEDS: Lactated Ringers 1,000 ML 100 ML IVCONT (09:46)
[2024-07-28 10:00] VITALS: BP 149/69; PULSE 57; RESP 18; TEMP 36.8; O2SAT 97
[2024-07-28 10:01] VITALS: BMI 25.8
--- NOTE | 2024-07-28 10:31 | P.CONAN_ITS ---
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 (Acute) Sacroiliac joint pain (Acute) Low back pain (Acute) Right hip pain (Acute) Pure hypercholesterolemia (Acute) Essential hypertension (Acute) Past Medical History Medical History Primary insomnia Left hip pain PAD (peripheral artery disease) Low back pain Right hip pain Pure hypercholesterolemia Essential hypertension Functional capacity: independent ambulation Family History Family History Father Prostate cancer Mother Alzheimers disease Brother Hyperlipidemia Family history of problems with anesthesia: No Surgical History Surgical History Hx of tooth extraction History of surgery History of appendectomy History of prostate surgery History of nasal surgery History of Problems with Anesthesia: No Social History Social History Housing: Apartment Are you a primary respiratory care instructor to a significant other at home: No Do you presently have visiting nurse or other home services: No Alcohol intake: current Alcohol intake frequency: a few times a month Alcohol type: beer and hard liquor Patient Tobacco Use Status: Never used Tobacco e-Cigarette/Vaping Use: Never Used Second Hand Smoke Exposure: No Have you been hit, kicked, punched, or otherwise hurt by someone within the past year? If so, by whom?: No Are you DNR?: No Advance Directives: No Advance Directives Information Provided: Yes Recently lost weight without trying: No Nutrition Risks: No Nutritional Risk service: No Current occupational status: disabled Cognitive needs: No Hearing needs: No Vision needs: No Meds Allergies Allergy/AdvReac Type Severity Reaction Status Date / Time amlodipine Allergy Intermediate leg edema Verified 07/28/24 09:36 atorvastatin Allergy Intermediate myalgia Verified 07/28/24 09:36 rosuvastatin Allergy Intermediate myalgia Verified 07/28/24 09:36 Active Medications: Current Medications Lactated Ringer's (Lr) 1,000 mls @ 100 mls/hr IVCONT .Q10H MCKENNA Last Admin: 07/28/24 09:46 Dose: 100 mls/hr Exam Height,Weight and Vital Signs: Height 5 ft 10 in Weight 81.647 kg Last Vital Signs Temp 98.2 F 07/28/24 10:00 Pulse 57 07/28/24 10:00 Resp 18 07/28/24 10:00 BP 149/69 H 07/28/24 10:00 Pulse Ox 97 07/28/24 10:00 O2 Del Method Room Air 07/28/24 10:00 Airway Mallampati Class: II TM Dist: >3cm Neck ROM: Full Heart: RRR Lungs: CTA Assessment and Plan Assessment Anesthesia Assessment: Anesthesia Plan Discussed and Chart Reviewed Final Anesthetic Review Family History of Problems with Anesthesia: No History of Problems with Anesthesia: No ASA Class: II Final Preanesthetic Review: Meds/Allgs Chart Reviewed, Consent Obtained/Reviewed and Anes Risks/Benef Reviewed Patient Risk: Low Procedure Risk: Low Anesthetic Plan Anesthetic Plan: MAC: Disposition: Standard PACU
--- NOTE | 2024-07-28 10:41 | MHC.SHP ---
Pre-Procedural Eval Section A - 24 Hr Update-Section A only Date of Service: 07/28/24 Section B - Complete if H&P > 30 days Chief Complaint: screening Details of Present Illness: Primary insomnia Left hip pain PAD (peripheral artery disease) Low back pain Right hip pain Pure hypercholesterolemia Essential hypertension Surgical History (Updated 03/04/24 @ 15:23 by Mary Allen) Hx of tooth extraction History of surgery History of appendectomy History of prostate surgery History of nasal surgery Allergies: Allergies Allergy/AdvReac Type Severity Reaction Status Date / Time amlodipine Allergy Intermediate leg edema Verified 07/28/24 09:36 atorvastatin Allergy Intermediate myalgia Verified 07/28/24 09:36 rosuvastatin Allergy Intermediate myalgia Verified 07/28/24 09:36 Review of Systems Review of Systems Comment: Ten point ROS negative Exam Exam Comment: Gen appear: No acute distress HEENT: no icterus Chest: No overt resp distress Abd: soft, nontender, nondistended Psych: Stable affect, answering questions appropriately Neuro: A/Ox3 noted to move all extremities spontaneously Ext: no peripheral edema Plan Diagnosis/Plan: Unchanged I have reviewed the history and physical and performed a pertinent physical examination on my patient. No changes have occurred unless specified. Time Spent With Patient Time: Total time managing care of this patient today ____ minutes.
--- NOTE | 2024-07-28 10:42 | P.OPN-COLO_ITS ---
Colonoscopy Operative Note Operative Note Date of Service: 07/28/24 Narrative: Procedure: Colonoscopy Indication: Screening Endoscopist: Radha Dyson MD Anesthesia Provider: Dr Guerda Callejas Anesthesia type: MAC Instrument: Olympus [id number]-[id number] Consent: Indication, risks vs benefits, and alternatives were discussed with the patient who gave written informed consent to proceed. An insurance billing clerk was utilized to assist with the consent. Monitoring: EKG, pulse, pulse oximetry and blood pressure were monitored throughout the procedure. Please see anesthesia flowsheet. Procedure: The patient was brought to the procedure room and placed in the left lateral decubitus position. IV medications were administered by the anesthesia provider in attendance. A digital rectal exam was performed which was normal. A distal attachment cap was affixed to the tip of the colonoscope which was then inserted through the anus and advanced through the colon to the cecum at 75 cm,and terminal ileum. Appendiceal orifice and ileocecal valve were identified. Mucosa was carefully examined under high definition white light as the instrument was slowly withdrawn in a retrograde panoramic fashion. Retroflexion was performed in ascending colon and rectum. The procedure was not difficult. There were no immediate obvious complications. The quality of the prep was BBPS: 2+2+2 = adequate Withdrawal time 9 minutes. Limitations: No limitations. Findings: Mucosa: Normal to cecum and terminal ileum. Protruding lesions: * Large internal hemorrhoids without stigmata of recent bleeding. Impression: 1. Normal colon and terminal ileum mucosa 2. Internal hemorrhoids Recommendations: - Repeat colonoscopy in 10 years if patient in good health.
[2024-07-28 11:11] VITALS: BP 84/43; PULSE 59; RESP 16; TEMP 36.2; O2SAT 99
[2024-07-28 11:16] VITALS: BP 81/46; PULSE 57; RESP 16; O2SAT 98
[2024-07-28 11:21] VITALS: BP 92/50; PULSE 55; RESP 16; O2SAT 98
[2024-07-28 11:39] VITALS: BP 108/72; PULSE 54; RESP 17; TEMP 36.2; O2SAT 100
--- NOTE | 2024-07-28 13:24 | HO.POSTANES ---
Post Anesthesia Evaluation Post Anesthesia Evaluation Date of Service: 07/28/24 Vital Signs: Vital Signs Temp Pulse Resp BP Pulse Ox O2 Del Method 07/28/24 11:39 97.2 F 54 17 108/72 100 Room Air 07/28/24 11:21 55 16 92/50 L 98 Room Air 07/28/24 11:16 57 16 81/46 L 98 Room Air 07/28/24 11:11 97.2 F 59 16 84/43 L 99 Room Air 07/28/24 10:00 98.2 F 57 18 149/69 H 97 Room Air Anesthesia: Monitored Mental Status: Awake Pain Control: Satisfactory Nausea/Vomiting: None Hydration: Adequate Anesthesia-Related Issues: No Anes. Related Issues
== END 2024-07-28 12:08 | disposition home or self-care (01) ==
PROVIDERS: PCP Internal Medicine; Visit Provider Internal Medicine
PROC: 0DJD8ZZ Inspection of Lower Intestinal Tract, Via Natural or Artificial Opening Endoscopic (ICD-10-PCS; CPT 45378; principal; 2024-07-28 11:30)
DX: Z12.11 Encounter for screening for malignant neoplasm of colon (principal); K64.8 Other hemorrhoids; I10 Essential (primary) hypertension; I73.9 Peripheral vascular disease, unspecified; E78.00 Pure hypercholesterolemia, unspecified; F51.01 Primary insomnia; Z79.899 Other long term (current) drug therapy; Z88.8 Allergy status to other drugs, medicaments and biological substances; Z98.890 Other specified postprocedural states
CPT/HCPCS: G0121; J2003; J2704

== ENCOUNTER → 2024-07-28 09:12 | Outpatient (BNV) | payer MEDICARE, SELFPAY | PROVIDERS: PCP Internal Medicine; Visit Provider Internal Medicine | DX: Z12.11 Encounter for screening for malignant neoplasm of colon (principal); K64.8 Other hemorrhoids | CPT/HCPCS: G0121 ==

== ENCOUNTER 2024-08-11 11:51 | Outpatient (AMB) | payer MEDICARE, SELFPAY ==
--- NOTE | 2024-08-11 11:55 | MHC.OFFVIS ---
Vital Signs 08/11/24 11:56 Height 5 ft 10 in Weight 167 lb 8.821 oz BMI 24.0 BP 146/60 H Blood Pressure Location Rt brachial Position Sitting Pulse 62 Pulse Source Pulse Oximeter Pulse Oximetry (%) 100 Oxygen Delivery Method Room Air Intake Visit Reasons: s/p colon Intake Note: Relevant Flags or Indicators ? Requires Payroll Benefits Clerk? Y Lexx presents in office today for a scheduled s/p FUV. CC; ?No recent labs, diagnostics, or meds ordered recently. Relevant GI Sx as reported per pt? Pt does report occasional constipation, however; nothing new since the procedure. ? Hx of any recent surgeries? Colonoscopy w/ Dr. Dyson. Payroll Benefits Clerk Required: Yes Payroll Benefits Clerk Services: Payroll Benefits Clerk Present Payroll Benefits Clerk Name: [id number] Wheatley Information Interpreted: non-clinical & clinical Accompanied by: Self / Same As Patient Allergies amlodipine Allergy (Intermediate, Verified 08/11/24 11:56) leg edema atorvastatin Allergy (Intermediate, Verified 08/11/24 11:56) myalgia rosuvastatin Allergy (Intermediate, Verified 08/11/24 11:56) myalgia HPI HPI s/p colon: Details: LAST VISIT: Screen for colon cancer Plan Patient denies any GI, cardiac or respiratory symptoms.? Denies any issues with anesthesia in the past.? Denies any history of sleep apnea.? No history infectious diseases in the past or present.? Not on any anticoagulation therapy.? No family or personal history of colon cancer or polyps.? Patient denies melena, hematochezia, unintentional weight loss or ribbon like stools.? Discussed at length the pre-procedure,? prep, diet & medications as well as what to expect prior, during and after the procedure.?? Stressed the importance of good bowel prep.? Recommended the use of Vaseline or Calmoseptine OTC & baby wipes with bowel movements to promote comfort.? ?Patient verbalizes understanding and agrees to plan of care.? He was given the opportunity to ask questions and all questions answered.? We will see him after the procedure.? Medications New bisacodyl (Dulcolax (bisacodyl)) take 4 tabs at noon the day before your colonoscopy 20 mg (4 x 5 mg) PO ONCE 4 tabs 0RF 1 day Z12.11 polyethylene glycol 3350 (Miralax) As directed by gastroenterology department at [facility] 238 grams PO ONCE 238 grams 0RF Z12.11 COLONOSCOPY: Findings: Mucosa: Normal to cecum and terminal ileum. Protruding lesions: Large internal hemorrhoids without stigmata of recent bleeding. Impression: 1. Normal colon and terminal ileum mucosa 2. Internal hemorrhoids Recommendations: - Repeat colonoscopy in 10 years if patient in good health. TODAY'S VISIT: Patient is here today for follow-up and to discuss colonoscopy results. Patient denies any ill effects from the prep, anesthesia or procedure itself. Reports to be feeling well. However patient does report that he is not having bowel movements daily, sometimes he feels like he does not empty completely. Urge to go and no bowel movement. Patient denies melena, hematochezia, unintentional weight loss or ribbon like stools. Patient denies any dyspepsia, dysphagia or odynophagia. Patient reports to be feeling well denies any GI concerning symptoms. No polyps found, small internal hemorrhoids. [facility] Medical History (Updated 08/11/24 @ 12:33 by Lilibeth Ryan, [facility]) Internal hemorrhoids without complication Primary insomnia Left hip pain PAD (peripheral artery disease) Low back pain Right hip pain Pure hypercholesterolemia Essential hypertension Surgical History Hx of tooth extraction History of surgery History of appendectomy History of prostate surgery History of nasal surgery Family History Father Prostate cancer Mother Alzheimers disease Brother Hyperlipidemia Social History Housing: Apartment Are you a primary critical care unit nurse to a significant other at home: No Do you presently have visiting nurse or other home services: No Alcohol intake: current Alcohol intake frequency: a few times a month Alcohol type: beer and hard liquor Patient Tobacco Use Status: Never used Tobacco e-Cigarette/Vaping Use: Never Used Second Hand Smoke Exposure: No service: No Current occupational status: disabled Cognitive needs: No Hearing needs: No Vision needs: No Physical Exam Vital Signs: Last Vital Signs Pulse 62 08/11/24 11:56 BP 146/60 H 08/11/24 11:56 Pulse Ox 100 08/11/24 11:56 Oxygen Delivery Method Room Air 08/11/24 11:56 BMI result Body Mass Index 24.0 Const General: healthy appearing, no acute distress and well developed Nutritional Appearance: well nourished Orientation/consciousness: patient oriented x3 Resp Effort & Inspection: normal respiratory effort, able to speak in complete sentences, no tracheal deviation and symmetric chest movement Auscultation: clear to auscultation bilaterally Cardio Rate: regular rate GI Inspection: Yes normal to inspection and No distended Palpation (GI): Soft to palpation, not firm, nontender and No hepatosplenomegaly present Auscultation: normal bowel sounds General: Yes no CVA tenderness Back/Spine/Pelvis Back: no CVA tenderness Skin General skin exam: elasticity normal, turgor normal and dry skin Neuro General: patient oriented x3 Psych Appearance: grossly normal Mental Status: mental status grossly normal Assessment & Plan Assessment & Plan (1) Internal hemorrhoids without complication: Code(s): K64.8 - Other hemorrhoids Category: Medical (2) Status post colonoscopy: Code(s): Z98.890 - Other specified postprocedural states (3) Constipation: Code(s): K59.00 - Constipation, unspecified Qualifiers: Constipation type: slow transit constipation Qualified Code(s): K59.01 - Slow transit constipation Plan Increase fluid intake and activity to promote better bowel motility. Patient can use MiraLax daily. Colonoscopy in 10 years, sooner if clinically necessary. Patient will follow-up in our office on as needed basis. He is agreeable to this plan and verbalizes understanding of instructions. He was given the opportunity to ask questions and all questions answered. Thank you for allowing me to participate in his care Medications: New polyethylene glycol 3350 (Miralax) 17 grams PO DAILY 510 grams 2RF Coding Level of Care Code Est Pt Level 3 (52709) Diagnoses Internal hemorrhoids without complication K64.8 Status post colonoscopy Z98.890 Slow transit constipation K59.01 Constipation type: slow transit constipation Time Spent (min) 25 Comment 15 minutes spent with patient and additional 10 minutes spent reviewing his records
[2024-08-11 11:56] VITALS: BP 146/60; PULSE 62; O2SAT 100; BMI 24.0
== END 2024-08-11 12:53 | disposition home or self-care (01) ==
LOC: HO.HGI 11:51
PROVIDERS: PCP Internal Medicine; Visit Provider Nurse Practitioner Family
DX: K64.8 Other hemorrhoids (principal); Z98.890 Other specified postprocedural states; K59.01 Slow transit constipation
CPT/HCPCS: 99213

== ENCOUNTER → 2024-08-11 11:51 | Outpatient (BNVA) | payer MEDICARE, SELFPAY | PROVIDERS: PCP Internal Medicine; Visit Provider Nurse Practitioner Family | DX: K64.8 Other hemorrhoids (principal); K59.01 Slow transit constipation; Z98.890 Other specified postprocedural states | CPT/HCPCS: 99212 ==

== ENCOUNTER 2024-09-03 07:38 | Outpatient (AMB) | payer MEDICARE, SELFPAY ==
--- NOTE | 2024-09-03 07:41 | MHC.PC.OV ---
Vital Signs 09/03/24 07:42 09/03/24 08:26 Height 5 ft 10 in Weight 171 lb BMI 24.5 BP 150/70 H 150/70 H Blood Pressure Location Lt brachial Lt brachial Position Sitting Sitting Intake Visit Reasons: bp Intake Note: Patient here for a follow up BP Beauty Specialist Required: No Accompanied by: Self / Same As Patient Allergies amlodipine Allergy (Intermediate, Verified 09/03/24 08:08) leg edema atorvastatin Allergy (Intermediate, Verified 09/03/24 08:08) myalgia rosuvastatin Allergy (Intermediate, Verified 09/03/24 08:08) myalgia Medication List - Last Reconciled 09/03/24 by Sangeetha Limon MD ezetimibe 10 mg PO DAILY 90 days lisinopril 20 mg PO DAILY 90 days Tobacco use date assessed: 12/17/23 Fall risk assessment: No Falls in past year Last assessed Fall Risk: 09/03/24 Dental Screening Dental Screen Date: 09/03/24 Did you have a dental visit in the last 12 months?: Yes Did you have a dental problem in the last 6 months where you did not have access to dental care?: No Was dental information given to patient?: Patient has dentist HPI HPI Comments History of Present Illness Details The patient is a 74-year-old male presenting for a follow-up of hypertension and evaluation of foot pain. He has a history of essential hypertension, which has been managed with Lisinopril 20 mg daily. The patient reported adherence to the medication. However, his blood pressure reading was 150/70 mmHg in the office, which he finds unusually high as it typically remains controlled. No recent changes in medication or lifestyle were noted, though the patient consumes alcohol occasionally and is advised to maintain a low-sodium diet. The patient also has a documented history of insomnia and chronic back pain. He reported difficulty sleeping and the need for non-pharmaceutical interventions such as utilizing a dark room and avoiding screens before bedtime. For back pain, he manages it with heating pads but prefers to avoid medications. Concerning the foot pain, initially presenting in the big toe and associated with specific triggers such as red meat and alcohol consumption, the patient suspects gout. He noted occasional pain between the feet, without redness or significant swelling at present. The recurrent nature of the pain and its localization suggest possible gout or neuropathy. A prior association of alcohol and red meat with episodes suggests a possible link between uric acid levels and these symptoms. The patient denies numbness but reports pain recurrence. A past analysis indicated normal uric acid levels, and he is currently under treatment with Ezetimibe 10 mg daily controlling hypercholesterolemia without muscle pain, unlike previous experiences with atorvastatin and rosuvastatin. [facility] Medical History Internal hemorrhoids without complication Primary insomnia Left hip pain PAD (peripheral artery disease) Low back pain Right hip pain Pure hypercholesterolemia Essential hypertension Surgical History Hx of tooth extraction History of surgery History of appendectomy History of prostate surgery History of nasal surgery Family History Father Prostate cancer Mother Alzheimers disease Brother Hyperlipidemia Social History Housing: Apartment Are you a primary certified social workers in health care to a significant other at home: No Do you presently have visiting nurse or other home services: No Alcohol intake: current Alcohol intake frequency: a few times a month Alcohol type: beer and hard liquor Patient Tobacco Use Status: Never used Tobacco e-Cigarette/Vaping Use: Never Used Second Hand Smoke Exposure: No service: No Current occupational status: disabled Cognitive needs: No Hearing needs: No Vision needs: No Questionnaire Thrive Questionnaire Date Thrive assessed: 12/17/23 DANISHA-7 AMB Questionnaire ADNISHA-7 Date DANISHA - 7 assessed: 04/14/24 Source: Developed by Drs. Christian Hopson, Era Mccormack, Frank Hood and colleagues, with an educational linda from [employer]. Review of Systems Const All systems reviewed & are unremarkable except as noted in HPI and below Card Denies chest pain at rest, Denies chest pain with activity, Denies edema, Denies irregular heart rhythm, Denies claudication, Denies dyspnea, Denies dyspnea on exertion, Denies orthopnea, Denies paroxysmal nocturnal dyspnea and Denies slow heart rate Resp Denies cough, Denies dyspnea and Denies dyspnea on exertion GI Denies abdominal pain, Denies change in bowel habits, Denies excessive flatus, Denies nausea and Denies vomiting Musc Reports back pain, Denies atrophy, Denies deformity, Reports arthralgias, Denies limited range of motion and Reports numbness Neuro Reports numbness Psych Reports abnormal sleep pattern Physical exam (Primary Care) Vital Signs: Last Vital Signs BP 150/70 H 09/03/24 07:42 Care Plan Goal for BP management: Decrease salt intake. Blood pressure goal is equal or less than 130/80. Next steps: Recheck blood pressure with nurse navigator in 3 weeks. BMI result Body Mass Index 24.5 Tobacco/Smoking Status: Tobacco use Status Tobacco use date assessed 12/17/23 09/03/24 07:46 Patient Tobacco Use Status Never used Tobacco 09/03/24 07:46 e-Cigarette/Vaping Use Never Used 09/03/24 07:46 Thrive Assessment: Date of Thrive Assessment Date Thrive assessed 12/17/23 09/03/24 07:46 Resp Effort & Inspection: normal respiratory effort Auscultation: clear to auscultation bilaterally Cardio Jugular venous distension: no JVD Rate: regular rate Rhythm: regular rhythm Heart sounds: S1 normal heart sound present and S2 normal heart sound present Neuro General: no focal motor deficits Extrem General: Yes full ROM Coding Level of Care Code Est Pt Level 4 (26036) Complex EM visit Add On G2211 Diagnoses Essential hypertension I10 Pure hypercholesterolemia E78.00 Low back pain M54.5 Foot pain M79.673 Primary insomnia F51.01 Time Spent (min) 24 Assessment & Plan Assessment & Plan (1) Essential hypertension: Code(s): I10 - Essential (primary) hypertension Category: Medical (2) Pure hypercholesterolemia: Code(s): E78.00 - Pure hypercholesterolemia, unspecified Category: Medical (3) Low back pain: Code(s): M54.5 - Low back pain Category: Medical (4) Foot pain: Code(s): M79.673 - Pain in unspecified foot Category: Medical (5) Primary insomnia: Code(s): F51.01 - Primary insomnia Category: Medical Plan - Essential Hypertension: Continue Lisinopril 20 mg daily. Plan to monitor blood pressure. - Insomnia: Encourage lifestyle modifications for sleep hygiene, including a darkened room and avoiding screen time prior to sleep. - Chronic Back Pain: Continue current non-pharmacological measures such as heating pads. - Possible Gout: Order uric acid levels to assess and consider starting allopurinol if elevated. - Possible Neuropathy: Check Vitamin levels for possible deficiency, consider neuropathy if is low. - Hypercholesterolemia: Continue Ezetimibe 10 mg daily with regular lipid profile monitoring. - Follow-up: Plan to reassess blood pressure in three weeks, further consultation in four months. Patient was informed and verbally consented to the use of an ambient scribe for clinic note documentation during this visit. Orders: Orders Uric Acid Today M79.673 - Pain in unspecified foot Vitamin B12 and Folate Today E53.8 - Deficiency of other specified B group vitamins Patient Instructions: - Continue Lisinopril 20 mg daily for hypertension. - Monitor blood pressure at home and record readings. - Follow a low-sodium diet. - Practice sleep hygiene techniques to improve insomnia. - Limit red meat consumption and reduce alcohol intake. - Use heating pads for back pain as needed. - Obtain blood tests for uric acid level and Vitamin B12. - Follow up in three weeks for blood pressure evaluation and in four months for comprehensive reassessment.
[2024-09-03 07:42] VITALS: BP 150/70; BMI 24.5
[2024-09-03 08:26] VITALS: BP 150/70
== END 2024-09-03 08:23 | disposition home or self-care (01) ==
PROVIDERS: PCP Internal Medicine; Visit Provider Internal Medicine
DX: I10 Essential (primary) hypertension (principal); E78.00 Pure hypercholesterolemia, unspecified; M54.50 Low back pain, unspecified; M79.673 Pain in unspecified foot; F51.01 Primary insomnia

== ENCOUNTER → 2024-09-03 07:38 | Outpatient (BNVA) | payer MEDICARE, SELFPAY | PROVIDERS: PCP Internal Medicine; Visit Provider Internal Medicine | DX: I10 Essential (primary) hypertension (principal); E78.00 Pure hypercholesterolemia, unspecified; M54.50 Low back pain, unspecified; M79.673 Pain in unspecified foot; F51.01 Primary insomnia | CPT/HCPCS: 99212 ==

== ENCOUNTER → 2024-09-24 09:28 | Outpatient (BNVA) | payer MEDICARE, SELFPAY | PROVIDERS: PCP Internal Medicine ==

== ENCOUNTER 2025-01-04 13:49 | Outpatient (AMB) | payer MEDICARE, SELFPAY ==
--- NOTE | 2025-01-04 14:03 | MHC.PC.OV ---
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 Language: Business Strategy Manager Name: Sangeetha Limon MD Information Interpreted: non-clinical & clinical Accompanied by: Self / Same As Patient Allergies amlodipine Allergy (Intermediate, Verified 01/04/25 14:13) leg edema atorvastatin Allergy (Intermediate, Verified 01/04/25 14:13) myalgia rosuvastatin Allergy (Intermediate, Verified 01/04/25 14:13) myalgia Medication List - Last Reconciled 01/04/25 by Sangeetha Limon MD ezetimibe 10 mg PO DAILY 90 days lisinopril 20 mg PO DAILY 90 days Tobacco use date assessed: 01/04/25 Fall risk assessment: No Falls in past year Last assessed Fall Risk: 01/04/25 Dental Screening Dental Screen Date: 01/04/25 Did you have a dental visit in the last 12 months?: Yes Did you have a dental problem in the last 6 months where you did not have access to dental care?: No Was dental information given to patient?: Patient has dentist HPI HPI Comments History of Present Illness Details The patient is a 74-year-old male presenting with symptoms of neuropathy. He describes the pain as occasionally severe, originating in the spine and sometimes radiating down the leg with accompanying numbness. There is no associated fever. The exacerbations of pain seem to be triggered by physical activities such as lifting or turning abruptly. He has a documented history of an allergic reaction to amlodipine resulting in swelling, and atorvastatin induces muscle pain, a condition described as myopathy. This has necessitated the use of ibuprofen 800 mg for pain management, which he has been obtaining through his 's prescription. His medical history includes essential hypertension, controlled with lisinopril, and hyperlipidemia treated with rosuvastatin. Despite these treatments, he expresses concern about the effectiveness and side effects of his current medication regimen. [facility] Medical History (Updated 01/04/25 @ 14:22 by Sangeetha Limon MD) Internal hemorrhoids without complication Primary insomnia Left hip pain PAD (peripheral artery disease) Low back pain Right hip pain Pure hypercholesterolemia Essential hypertension Surgical History Hx of tooth extraction History of surgery History of appendectomy History of prostate surgery History of nasal surgery Family History Father Prostate cancer Mother Alzheimers disease Brother Hyperlipidemia Social History Housing: Apartment Are you a primary med care manager to a significant other at home: No Do you presently have visiting nurse or other home services: No Alcohol intake: current Alcohol intake frequency: a few times a month Alcohol type: beer and hard liquor Patient Tobacco Use Status: Never used Tobacco e-Cigarette/Vaping Use: Never Used Second Hand Smoke Exposure: No service: No Current occupational status: disabled Cognitive needs: No Hearing needs: No Vision needs: No Questionnaire PHQ-9 Over the last 2 weeks, how often have you been bothered by any of the following problems? 1. Little interest or pleasure in doing things: not at all 2. Feeling down, depressed, or hopeless: not at all 3. Trouble falling or staying asleep, or sleeping too much: not at all 4. Feeling tired or having little energy: not at all 5. Poor appetite or overeating: not at all 6. Feeling bad about yourself - or that you are a failure or have let yourself or your family down: not at all 7. Trouble concentrating on things, such as reading the newspaper or watching television: not at all 8. Moving or speaking so slowly that other people could have noticed. Or the opposite - being so fidgety or restless that you have been moving around a lot more than usual: not at all 9. Thoughts that you would be better off or of hurting yourself in some way: not at all Total score: 0 Depression Screening Interpretation: Negative Depression Screening Done: Yes 15736 - PHQ-9 Billing: Yes Source: Developed by Drs. Christian Hopson, Era Mccormack, Frank Hood and colleagues, with an educational linda from [employer]. Thrive Questionnaire Date Thrive assessed: 01/04/25 I am a: Patient What is your living situation today?: I have a steady place to live Within the past 12 months, did the food you bought not last and you didn't have the money to get more?: Never true Within the past 12 months, did you worry whether your food would run out before you got money to buy more?: Never true Do you have trouble paying for medicines?: No Do you have trouble getting transportation to medical appointments?: No Do you have trouble paying your heating and electricity bill?: No Do you have trouble taking care of your child, family member or friend?: No Do you have trouble with day-to-day activities such as bathing, preparing meals, shopping, managing finances, etc.?: No Are you currently unemployed and looking for a job?: No Are you interested in more education?: No Please select the resources that you would like help with: None Currently or been in a relationship where the following occur: No concerns reported THRIVE Score: 0 AUDIT C Alcohol Use Questionnaire (AUDIT-C) 1. How often do you have a drink containing alcohol?: Monthly or less 2. How many drinks containing alcohol do you have on a typical day when you are drinking?: 1 or 2 3. How often do you have six or more drinks on one occasion?: Never Total Score: 1 Score Reviewed/Action Taken: No DANISHA-7 AMB Questionnaire DANISHA-7 Date DANISHA - 7 assessed: 01/04/25 Feeling nervous, anxious, or on edge: 0 = Not at all Not being able to stop or control worryin = Not at all Worrying too much about different things: 0 = Not at all Trouble relaxin = Not at all Being so restless that it is hard to sit still: 0 = Not at all Becoming easily annoyed or irritable: 0 = Not at all Feeling afraid as if something awful might happen: 0 = Not at all Total DANISHA-7 score (0-4 normal; 5-9 mild; 10-14 moderate; 15-21 severe): 0 Source: Developed by Drs. Christian Hopson, Era Mccormack, Frank Hood and colleagues, with an educational linda from [employer]. DANISHA-7 Assessment Billing DANISHA-7 Assessment Tool: DANISHA-7 Assessment 82953 Review of Systems Const All systems reviewed & are unremarkable except as noted in HPI and below Card Denies chest pain at rest, Denies chest pain with activity, Denies edema, Denies irregular heart rhythm, Denies claudication, Denies dyspnea, Denies dyspnea on exertion, Denies orthopnea, Denies paroxysmal nocturnal dyspnea and Denies slow heart rate Resp Denies cough, Denies dyspnea and Denies dyspnea on exertion Physical exam (Primary Care) Vital Signs: Last Vital Signs BP 132/60 01/04/25 14:04 BMI result Body Mass Index 24.8 Tobacco/Smoking Status: Tobacco use Status Tobacco use date assessed 01/04/25 01/04/25 14:11 Patient Tobacco Use Status Never used Tobacco 01/04/25 14:08 e-Cigarette/Vaping Use Never Used 01/04/25 14:08 PHQ-9: PHQ-9 Score PHQ-9: Total score 0 01/04/25 16:11 Depression Screening Interpretation: Negative Thrive Assessment: Date of Thrive Assessment Date Thrive assessed 01/04/25 01/04/25 14:08 Currently or been in a relationship where the following occur: No concerns reported Resp Effort & Inspection: normal respiratory effort Auscultation: clear to auscultation bilaterally Cardio Jugular venous distension: no JVD Rate: regular rate Rhythm: regular rhythm Heart sounds: S1 normal heart sound present and S2 normal heart sound present Extrem General: Yes full ROM Coding Level of Care Code Est Pt Level 3 (62268) Complex EM visit Add On G2211 Diagnoses Essential hypertension I10 Pure hypercholesterolemia E78.00 Left sided sciatica M54.32 Additional Codes DANISHA-7 Assessment Billing - DANISHA-7 Assessment Tool: DANISHA-7 Assessment 09429 ([id number]) PHQ-9 - 43404 - PHQ-9 Billing: Yes ([id number]) Time Spent (min) 19 Assessment & Plan Assessment & Plan (1) Essential hypertension: Code(s): I10 - Essential (primary) hypertension Category: Medical (2) Pure hypercholesterolemia: Code(s): E78.00 - Pure hypercholesterolemia, unspecified Category: Medical (3) Left sided sciatica: Code(s): M54.32 - Sciatica, left side Category: Medical Plan The plan to manage the patient's neuropathic pain includes the use of tramadol for acute severe pain episodes and gabapentin for ongoing management of nerve pain. Tramadol?s opioid nature demands careful usage due to risks of addiction and sedation. Gabapentin, initiated at a low dose for nightly use, should not be taken concurrently with tramadol. The patient has been informed about the risks and will be monitored for efficacy and side effects. Patient was informed and verbally consented to the use of an ambient scribe for clinic note documentation during this visit. During the visit, we discussed the management of the patient's neuropathic pain, focusing on medication options mindful of his history of allergies and myopathy. I explained the potential benefits of tramadol for acute pain relief, emphasizing the risk of addiction and sedation. For long-term management, we discussed gabapentin and the necessity of consistency in administration for effective results. I instructed him to avoid concurrent use of these medications to minimize adverse effects. I recommended gabapentin due to its efficacy in neuropathic pain relief and we planned to monitor his response to the treatment strategy. Orders: Orders Lipid Panel Today E78.5 - Hyperlipidemia, unspecified Comprehensive [place]. Panel Fast Today I10 - Essential (primary) hypertension Medications: New tramadol 50 mg PO BID PRN 14 tabs 0RF pain 7 days M54.32 - Sciatica, left side gabapentin 100 mg PO BEDTIME 30 caps 0RF 30 days Patient Instructions: - Take tramadol as needed for severe pain, but do not exceed prescribed dosage. - Begin taking gabapentin at night for management of nerve pain. - Do not take tramadol and gabapentin at the same time. - Monitor for side effects like sedation or dizziness and report if they occur. - Follow up as needed to discuss the effectiveness of the new treatment plan.
[2025-01-04 14:04] VITALS: BP 132/60; BMI 24.8
== END 2025-01-04 14:22 | disposition home or self-care (01) ==
LOC: HO.HMCH 13:50
PROVIDERS: PCP Internal Medicine; Visit Provider Internal Medicine
DX: I10 Essential (primary) hypertension (principal); E78.00 Pure hypercholesterolemia, unspecified; M54.32 Sciatica, left side

== ENCOUNTER → 2025-01-04 13:49 | Outpatient (BNVA) | payer MEDICARE, SELFPAY | PROVIDERS: PCP Internal Medicine; Visit Provider Internal Medicine | DX: I10 Essential (primary) hypertension (principal); E78.00 Pure hypercholesterolemia, unspecified; M54.32 Sciatica, left side | CPT/HCPCS: 96127; 99212 ==

== ENCOUNTER 2025-03-11 07:26 | Outpatient (REF) | payer MEDICARE, SELFPAY ==
[2025-03-11 08:43] LABS: Alanine Aminotransferase 26 U/L (0-40); Albumin Level 4.7 g/dL (3.5-5.0); Alkaline Phosphatase 82 U/L (39-117); Anion Gap 10 (12-20); Aspartate Amino Transferase 30 U/L (5-37); Bilirubin Total 0.6 mg/dL (0.0-1.0); Blood Urea Nitrogen 13 mg/dL (9-16); Calcium 9.9 mg/dL (8.4-10.2); Carbon Dioxide 28 mmol/L (22-29); Chloride 111 mmol/L (96-108); Cholesterol 221 mg/dL (<200); Estimated Glomerular Filt Rate > 60; Glucose Fasting 102 mg/dL (60-99); HDL Cholesterol 64 mg/dL (>40); LDL Cholesterol Calculated 127 mg/dL (<100); Potassium 4.3 mmol/L (3.3-5.1); Sodium 145 mmol/L (135-145); Total Protein 7.5 g/dL (6.5-8.0); Triglycerides 154 mg/dL (<150)
[2025-03-11 08:50] LABS: Uric Acid 4.4 mg/dL (3.4-7.0)
[2025-03-11 09:14] LABS: Folate 13.6 ng/mL (> or = 4.0); Vitamin B12 1537 pg/mL (200-900)
== END 2025-03-11 07:27 | disposition home or self-care (01) ==
LOC: HO.LAB 07:26
PROVIDERS: PCP Internal Medicine; Visit Provider Internal Medicine
DX: I10 Essential (primary) hypertension (principal)
CPT/HCPCS: 36415; 80053; 80061; 82607; 82746; 84550

== ENCOUNTER 2025-04-20 08:59 | Outpatient (AMB) | payer MEDICARE, SELFPAY ==
--- NOTE | 2025-04-20 09:18 | A.OFFPC_ITS ---
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 He has a history of hypertension, currently managed with lisinopril. He also has hyperlipidemia, but experiences statin-induced myalgia, which precludes the use of statins. His preventative care measures include an up-to-date pneumonia vaccination and a planned Tdap vaccination during the next office visit. [facility] Medical History Internal hemorrhoids without complication Primary insomnia Left hip pain PAD (peripheral artery disease) Low back pain Right hip pain Pure hypercholesterolemia Essential hypertension Surgical History Hx of tooth extraction History of surgery History of appendectomy History of prostate surgery History of nasal surgery Family History Father Prostate cancer Mother Alzheimers disease Brother Hyperlipidemia Social History Housing: Apartment Are you a primary vp care management to a significant other at home: No Do you presently have visiting nurse or other home services: No Alcohol intake: current Alcohol intake frequency: a few times a month Alcohol type: beer and hard liquor Patient Tobacco Use Status: Never used Tobacco e-Cigarette/Vaping Use: Never Used Second Hand Smoke Exposure: No service: No Current occupational status: disabled Cognitive needs: No Hearing needs: No Vision needs: No Questionnaire PHQ-9 Over the last 2 weeks, how often have you been bothered by any of the following problems? 1. Little interest or pleasure in doing things: not at all 2. Feeling down, depressed, or hopeless: not at all 3. Trouble falling or staying asleep, or sleeping too much: more than half the days 4. Feeling tired or having little energy: not at all 5. Poor appetite or overeating: not at all 6. Feeling bad about yourself - or that you are a failure or have let yourself or your family down: not at all 7. Trouble concentrating on things, such as reading the newspaper or watching television: not at all 8. Moving or speaking so slowly that other people could have noticed. Or the opposite - being so fidgety or restless that you have been moving around a lot more than usual: not at all 9. Thoughts that you would be better off or of hurting yourself in some way: not at all Total score: 2 Depression Screening Interpretation: Negative Depression Screening Done: Yes 36318 - PHQ-9 Billing: Yes Source: Developed by Drs. Christian Hopson, Era Mccormack, Frank Hood and colleagues, with an educational linda from [employer]. Thrive Questionnaire Date Thrive assessed: 04/20/25 I am a: Patient What is your living situation today?: I have a steady place to live Within the past 12 months, did the food you bought not last and you didn't have the money to get more?: Never true Within the past 12 months, did you worry whether your food would run out before you got money to buy more?: Never true Do you have trouble paying for medicines?: No Do you have trouble getting transportation to medical appointments?: No Do you have trouble paying your heating and electricity bill?: No Do you have trouble taking care of your child, family member or friend?: No Do you have trouble with day-to-day activities such as bathing, preparing meals, shopping, managing finances, etc.?: No Are you currently unemployed and looking for a job?: Yes Are you interested in more education?: No Please select the resources that you would like help with: None Currently or been in a relationship where the following occur: No concerns reported THRIVE Score: 0 AUDIT C Alcohol Use Questionnaire (AUDIT-C) 1. How often do you have a drink containing alcohol?: Never Total Score: 0 DANISHA-7 AMB Questionnaire DANISHA-7 Date DANISHA - 7 assessed: 04/20/25 Feeling nervous, anxious, or on edge: 0 = Not at all Not being able to stop or control worryin = Not at all Worrying too much about different things: 0 = Not at all Trouble relaxin = Not at all Being so restless that it is hard to sit still: 0 = Not at all Becoming easily annoyed or irritable: 0 = Not at all Feeling afraid as if something awful might happen: 0 = Not at all Total DANISHA-7 score (0-4 normal; 5-9 mild; 10-14 moderate; 15-21 severe): 0 Source: Developed by Drs. Christian Hopson, Ear Mccormack, Frank Hood and colleagues, with an educational linda from [employer]. DANISHA-7 Assessment Billing DANISHA-7 Assessment Tool: DANISHA-7 Assessment 33425 Review of Systems Const All systems reviewed & are unremarkable except as noted in HPI and below Card Denies chest pain at rest, Denies chest pain with activity, Denies edema, Denies irregular heart rhythm, Denies claudication, Denies dyspnea, Denies dyspnea on exertion, Denies orthopnea, Denies paroxysmal nocturnal dyspnea and Denies slow heart rate Resp Denies cough, Denies dyspnea and Denies dyspnea on exertion GI Denies abdominal pain, Denies change in bowel habits, Denies excessive flatus, Denies nausea and Denies vomiting Denies urinary hesitancy, Denies urinary incontinence and Denies urinary urgency Musc Denies abnormal gait, Denies atrophy, Denies deformity and Denies limited range of motion Skin/Breast Denies bleeding lesions, Denies changing lesions and Denies rash Neuro Denies abnormal gait and Denies lack of coordination Physical exam (Primary Care) Vital Signs: Last Vital Signs BP 126/60 04/20/25 09:22 BMI result Body Mass Index 25.3 Tobacco/Smoking Status: Tobacco use Status Tobacco use date assessed 01/04/25 04/20/25 09:28 Patient Tobacco Use Status Never used Tobacco 04/20/25 09:28 e-Cigarette/Vaping Use Never Used 04/20/25 09:28 PHQ-9: PHQ-9 Score PHQ-9: Total score 2 04/20/25 09:40 Depression Screening Interpretation: Negative Thrive Assessment: Date of Thrive Assessment Date Thrive assessed 04/20/25 04/20/25 09:28 Currently or been in a relationship where the following occur: No concerns reported [facility] Head: Yes normal to inspection, Yes normocephalic and Yes atraumatic Ears: external ears normal Eyes General: appearance normal, both eyes and all related structures Eyelids: Yes eyelids normal Conjunctivae: conjunctivae normal Neck Neck: Yes normal visual inspection and Yes supple Resp Effort & Inspection: normal respiratory effort Auscultation: clear to auscultation bilaterally Cardio Jugular venous distension: no JVD Rate: regular rate Rhythm: regular rhythm Heart sounds: S1 normal heart sound present and S2 normal heart sound present GI Inspection: Yes normal to inspection Palpation (GI): Soft to palpation and nontender Auscultation: normal bowel sounds Skin General skin exam: no rashes or lesions noted Neuro General: no focal motor deficits Extrem General: Yes full ROM Psych Appearance: grossly normal Coding Level of Care Code Est Pt Prev Care >65y(05600) Diagnoses Physical exam Z00.00 Additional Codes DANISHA-7 Assessment Billing - DANISHA-7 Assessment Tool: DANISHA-7 Assessment 68927 ([id number]) PHQ-9 - 35545 - PHQ-9 Billing: Yes ([id number]) Time Spent (min) 30 Assessment & Plan Assessment & Plan (1) Physical exam: Code(s): Z00.00 - Encounter for general adult medical examination without abnormal findings Category: Medical Plan The patient will continue with lisinopril for hypertension management. Due to statin-induced myalgia, alternative lipid-lowering strategies are being considered, with current management including the use of Zetia. Preventative care measures include ensuring the pneumonia vaccination remains up to date and administering the Tdap vaccine during the next visit. Medications: Discontinued tramadol Discontinued Reason: Patient Completed Course 50 mg PO BID 7 days PRN 14 tabs 0RF pain M54.32 - Sciatica, left side gabapentin Discontinued Reason: Patient Completed Course 100 mg PO BEDTIME 30 days 30 caps 0RF
[2025-04-20 09:22] VITALS: BP 126/60; BMI 25.3
== END 2025-04-20 09:43 | disposition home or self-care (01) ==
LOC: HO.HMCH 09:00
PROVIDERS: PCP Internal Medicine; Visit Provider Internal Medicine
DX: Z00.00 Encounter for general adult medical examination without abnormal findings (principal)

== ENCOUNTER → 2025-04-20 08:59 | Outpatient (BNVA) | payer MEDICARE, SELFPAY | PROVIDERS: PCP Internal Medicine; Visit Provider Internal Medicine | DX: Z00.00 Encounter for general adult medical examination without abnormal findings (principal); M54.32 Sciatica, left side; E78.00 Pure hypercholesterolemia, unspecified; I10 Essential (primary) hypertension | CPT/HCPCS: 96127; 99397 ==

== ENCOUNTER 2025-07-08 09:35 | Outpatient (AMB) | payer MEDICARE, SELFPAY ==
[2025-07-08 09:41] VITALS: BP 126/48; PULSE 63; RESP 18; TEMP 36.3; O2SAT 98; BMI 25.1
--- NOTE | 2025-07-08 09:41 | MHC.PC.OV ---
Vital Signs 07/08/25 09:41 Height 5 ft 10 in Weight 175 lb 4 oz BMI 25.1 BP 126/48 L Blood Pressure Location Lt brachial Position Sitting Respiration 18 Pulse 63 Pulse Source Pulse Oximeter Temp 97.3 F Temp Source Temporal Artery Scan Pulse Oximetry (%) 98 Oxygen Delivery Method Room Air Intake Visit Reasons: bp Dag Coater Required: No Accompanied by: Self / Same As Patient Allergies amlodipine Allergy (Intermediate, Verified 07/08/25 10:17) leg edema atorvastatin Allergy (Intermediate, Verified 07/08/25 10:17) myalgia rosuvastatin Allergy (Intermediate, Verified 07/08/25 10:17) myalgia Medication List - Last Reconciled 07/08/25 by Sangeetha Limon MD ezetimibe 10 mg PO DAILY 90 days lisinopril 20 mg PO DAILY 90 days Tobacco use date assessed: 07/08/25 Fall risk assessment: No Falls in past year Last assessed Fall Risk: 07/08/25 Dental Screening Dental Screen Date: 07/08/25 Did you have a dental visit in the last 12 months?: Yes Did you have a dental problem in the last 6 months where you did not have access to dental care?: No Was dental information given to patient?: Patient has dentist HPI HPI Comments History of Present Illness Details The patient is a 75-year-old male presenting for management of hyperlipidemia and evaluation of cardiovascular risk. The patient has a history of elevated cholesterol levels, which have been difficult to manage due to adverse reactions to multiple statins, including atorvastatin and rosuvastatin, which caused muscle pain. Amlodipine was previously prescribed but resulted in peripheral edema, leading to its discontinuation. The patient's Redding risk score indicates a 15.8% risk of a cardiovascular event in the next 10 years, which is considered high. The patient has been advised to consider alternative lipid-lowering therapies, including a potential injectable medication not associated with muscle pain. [facility] Medical History Internal hemorrhoids without complication Primary insomnia Left hip pain PAD (peripheral artery disease) Low back pain Right hip pain Pure hypercholesterolemia Essential hypertension Surgical History Hx of tooth extraction History of surgery History of appendectomy History of prostate surgery History of nasal surgery Family History Father Prostate cancer Mother Alzheimers disease Brother Hyperlipidemia Social History Housing: Apartment Are you a primary patient care technician instructor to a significant other at home: No Do you presently have visiting nurse or other home services: No Alcohol intake: current Alcohol intake frequency: a few times a month Alcohol type: beer and hard liquor Patient Tobacco Use Status: Never used Tobacco e-Cigarette/Vaping Use: Never Used Second Hand Smoke Exposure: No service: No Current occupational status: disabled Cognitive needs: No Hearing needs: No Vision needs: No Questionnaire Thrive Questionnaire Date Thrive assessed: 04/20/25 I am a: Patient What is your living situation today?: I have a steady place to live Within the past 12 months, did the food you bought not last and you didn't have the money to get more?: Never true Within the past 12 months, did you worry whether your food would run out before you got money to buy more?: Never true Do you have trouble paying for medicines?: No Do you have trouble getting transportation to medical appointments?: No Do you have trouble paying your heating and electricity bill?: No Do you have trouble taking care of your child, family member or friend?: No Do you have trouble with day-to-day activities such as bathing, preparing meals, shopping, managing finances, etc.?: No Are you currently unemployed and looking for a job?: Yes Are you interested in more education?: No Please select the resources that you would like help with: None Currently or been in a relationship where the following occur: No concerns reported THRIVE Score: 0 DANISHA-7 AMB Questionnaire DANISHA-7 Date DANISHA - 7 assessed: 04/20/25 Source: Developed by Drs. Christian Hopson, Era Mccormack, Frank Hood and colleagues, with an educational linda from [employer]. Review of Systems Const All systems reviewed & are unremarkable except as noted in HPI and below Card Denies chest pain at rest, Denies chest pain with activity, Denies edema, Denies irregular heart rhythm, Denies claudication, Denies dyspnea, Denies dyspnea on exertion, Denies orthopnea, Denies paroxysmal nocturnal dyspnea and Denies slow heart rate Resp Denies cough, Denies dyspnea and Denies dyspnea on exertion Physical exam (Primary Care) Vital Signs: Last Vital Signs Temp 97.3 F 07/08/25 09:41 Pulse 63 07/08/25 09:41 Resp 18 07/08/25 09:41 BP 126/48 L 07/08/25 09:41 Pulse Ox 98 07/08/25 09:41 Oxygen Delivery Method Room Air 07/08/25 09:41 BMI result Body Mass Index 25.1 Tobacco/Smoking Status: Tobacco use Status Tobacco use date assessed 07/08/25 07/08/25 09:45 Patient Tobacco Use Status Never used Tobacco 07/08/25 09:45 e-Cigarette/Vaping Use Never Used 07/08/25 09:45 Thrive Assessment: Date of Thrive Assessment Date Thrive assessed 04/20/25 07/08/25 09:45 Currently or been in a relationship where the following occur: No concerns reported Resp Effort & Inspection: normal respiratory effort Auscultation: clear to auscultation bilaterally Cardio Jugular venous distension: no JVD Rate: regular rate Rhythm: regular rhythm Heart sounds: S1 normal heart sound present and S2 normal heart sound present Extrem General: Yes full ROM Coding Level of Care Code Est Pt Level 3 (51282) Diagnoses Essential hypertension I10 Pure hypercholesterolemia E78.00 Time Spent (min) 19 Assessment & Plan Assessment & Plan (1) Essential hypertension: Code(s): I10 - Essential (primary) hypertension Category: Medical (2) Pure hypercholesterolemia: Code(s): E78.00 - Pure hypercholesterolemia, unspecified Category: Medical Plan Plan Patient was informed and verbally consented to the use of an ambient scribe for clinic note documentation during this visit. 1. Hyperlipidemia The patient has hyperlipidemia with a high cardiovascular risk as indicated by a Redding risk score of 15.8%. Due to adverse reactions to statins, including muscle pain, alternative therapies are being considered. An injectable medication not associated with muscle pain is being explored, pending insurance approval. The patient is advised to follow dietary modifications, including daily oatmeal consumption and avoiding egg yolks, butter, and mayonnaise. 2. Adverse Reaction To Statins The patient experiences muscle pain with atorvastatin and rosuvastatin, necessitating discontinuation of these medications. Alternative lipid-lowering strategies are being considered, including non-statin options. 3. Peripheral Edema Due To Amlodipine Amlodipine was discontinued due to peripheral edema. Orders: Referrals Cardiology Referral E78.00 - Pure hypercholesterolemia, unspecified
== END 2025-07-08 10:26 | disposition home or self-care (01) ==
LOC: HO.HMCH 09:36
PROVIDERS: PCP Internal Medicine; Visit Provider Internal Medicine
DX: I10 Essential (primary) hypertension (principal); E78.00 Pure hypercholesterolemia, unspecified

== ENCOUNTER → 2025-07-08 09:35 | Outpatient (BNVA) | payer MEDICARE, SELFPAY | PROVIDERS: PCP Internal Medicine; Visit Provider Internal Medicine | DX: I10 Essential (primary) hypertension (principal); E78.00 Pure hypercholesterolemia, unspecified | CPT/HCPCS: 99212 ==